=== PATIENT | female | born 1955 | race Caucasian/White ===

== ENCOUNTER → 2017-10-04 | Outpatient (CLI) | payer BC ==
[2017-08-30 12:31] VITALS: BMI 27.2
[~2017-10-04] MED LIST: AMLO-96 PO; ASPI-1471 PO; CALC-640 PO; CARI-1 PO; CARI-327; CHOL10005 PO; CLOB30CR3 TP; DIVA500T98 PO; ESTR0.4513 PO; EZET1TAB81; FENO145T PO; FLU60SYR30 IM ONLY; FLUT16SP19 NS; FURO-45 PO; HYDR-393; LABE100T28 PO; LEV112 PO; LEVO-3 PO; LEVO200T44; LEVO200T44 PO; LEVO25TA61 PO; LID5T; LOSA-57; LOSA50TA72 PO; MULT-1379 PO; NABU-95; PANT40TA65 PO; PARO-46 PO; PARO40TA88; PARO40TA88 PO; POTA20TA94 PO; QUET50TA21 PO; ROSU10TA13 PO; ROSU20TA23 PO; TRAM-420 PO; TRAM-627 PO
== END ==
LOC: LAB 15:18
PROVIDERS: ATTEND Surgery
DX: E87.6 Hypokalemia (principal)
CPT/HCPCS: 36415; 82374; 82435; 84132; 84295

== ENCOUNTER → 2017-10-04 | Outpatient (CLI) | payer BC ==
[2017-08-30 12:31] VITALS: BMI 27.2
[2017-10-04 16:04] LABS: PLATELET COUNT, AUTOMATED 222 K/uL (150-450)
== END ==
LOC: LAB 15:21
PROVIDERS: ATTEND Emergency Medicine
DX: D64.9 Anemia, unspecified (principal); E03.9 Hypothyroidism, unspecified
CPT/HCPCS: 36415; 84443; 85025

== ENCOUNTER 2018-01-12 00:20 | Day surgery (SDC) | payer BC ==
[2017-08-30 12:31] VITALS: Ht 170.2 cm; Wt 72.1 kg
[~2018-01-12] VITALS: Ht 170.2 cm; Wt 72.1 kg
[~2018-01-12 00:20] MED LIST changes: -FENO145T PO; +FENO145T36 PO; +KET10 PO; +LEVO50TA86 PO; +LEVO88TA45 PO; +LIDO700A19 TD; +POTA20TA85 PO
[2018-01-12] MEDS ORDERED: PROPOFOL EMUL(*) 10MG/ML 20 ML 20 ML ONE (07:26)
--- NOTE | 2018-01-12 07:27 | Post Operative Progress Note ---
Post Operative Progress Note Date: Jan 12, 2018 Time: 09:25 Surgeon: phillip Anesthesia: dr knight Pre-Op Diagnosis: diarrhea Post-Op Diagnosis: normal exam Procedure(s): colonoscopy with biopsy GABBY BAKER MD Jan 12, 2018 07:27
--- NOTE | 2018-01-12 07:28 | Short(Outpt) Discharge Summary ---
Discharge Summary Reason for Hosp/Final Diag: (1) Diarrhea Hospital Course & Plan: normal exam random biopsy obtained Departure Discharge to: Home Discharge Instructions Home Meds Active Scripts Levothyroxine Sodium (LEVOTHYROXINE SODIUM) 50 Mcg Tablet, 50 MCG PO QDAY, #45 TAB Prov:GOKUL PRICE MD 12/30/17 Quetiapine Fumarate (SEROQUEL) 50 Mg Tablet, 2 TAB PO QHS Y for INSOMNIA, #180 TAB 4 Refills Prov:GOKUL PRICE MD 10/17/17 Levothyroxine Sodium (LEVOTHYROXINE SODIUM) 100 Mcg Tablet, 100 MCG PO QDAY, # 90 TAB 3 Refills Prov:GOKUL PRICE MD 10/17/17 Pantoprazole Sodium (PANTOPRAZOLE SODIUM) 40 Mg Tablet.dr, 40 MG PO QDAY for 14 Days, #14 TAB Prov:GABBY BAKER MD 09/05/17 Fluticasone Prop 50 Mcg Ns (FLONASE 50 MCG NS) 16 Gm [place].susp, 1 SPRAY NS DAILY, #1 BOT 11 Refills 1-2 sprays both nostrils daily Prov:GOKUL PRICE MD 08/22/17 Labetalol Hcl (LABETALOL HCL) 100 Mg Tablet, 1 TAB PO BID, #180 TAB 1 Refill Prov:GOKUL PRICE MD 08/22/17 Paroxetine Hcl (PAROXETINE HCL) 20 Mg Tablet, 1 TAB PO QDAY, #90 TAB 3 Refills Prov:GOKUL PRICE MD 08/16/17 Amlodipine Besylate (AMLODIPINE BESYLATE) 5 Mg Tablet, 1 TAB PO QDAY, #90 TAB 4 Refills Prov:GOKUL PRICE MD 04/08/17 Losartan Potassium (LOSARTAN POTASSIUM) 50 Mg Tablet, 1 TAB PO QDAY, #90 TAB 4 Refills Prov:GOKUL PRICE MD 04/08/17 Furosemide (FUROSEMIDE) 20 Mg Tablet, 1 TAB PO QDAY, #30 TAB Prov:GOKUL PRICE MD 01/24/17 Reported Medications Lidocaine (Lidocaine) 5 % Adh..patch, 1 ADH.PATCH TD HS 01/05/18 Potassium Chloride (KLOR-CON M20) 20 Meq Tab.er.prt, 20 MEQ PO QDAY 01/05/18 Ketorolac Tromethamine (KETOROLAC TROMETHAMINE) 10 Mg Tab, 50 MG PO HS, TAB 01/05/18 Multivits,Th W-Fe,Other Min (THERA-M) 1 Each Tablet, 1 EACH PO DAILY 01/11/17 Calcium Citrate/Vitamin D3 (CALCITRATE + VIT D CAPLET) 1 Each Tablet, 1 EACH PO DAILY 01/11/17 Aspirin (ASPIR 81) 81 Mg Tablet.dr, 81 MG PO QDAY, TAB 01/02/17 Cholecalciferol (Vitamin D3) (VITAMIN D3) 1,000 Unit Tablet, 5000 UNIT PO QDAY, TAB 01/02/17 Estrogens, Conjugated (PREMARIN) 0.45 Mg Tablet, 1 TAB PO DAILY, #30 1 Refill 12/27/16 Discontinued Reported Medications Carisoprodol (SOMA) 350 Mg Tablet, 350 MG PO DAILY, #30 TAB 1 Refill Take 1 tablet daily at 6pm (1800) 01/11/17 Discontinued Scripts Potassium Chloride (POTASSIUM CHLORIDE) 20 Meq Tab.er.prt, 20 MEQ PO BIDBS for 10 Days, #20 TAB Prov:GABBY BAKER MD 09/05/17 Tramadol Hcl (TRAMADOL HCL) 50 Mg Tablet, 1 TAB PO TID for PAIN, #90 TAB 5 Refills Prov:GOKUL PRICE MD 05/12/17 Diet: Regular Activity: As Tolerated GABBY BAKER MD Jan 12, 2018 07:28
[2018-01-12] MEDS ORDERED: NORMOSOL R SOLN(*) 1000 ML BAG 1,000 ML IV PRN (08:30)
[2018-01-12] MEDS ORDERED: LIDOCAINE/SOD BICARB 8.4% SYR ID ONE (08:30)
[2018-01-12 08:33] VITALS: BP 127/80
[2018-01-12 09:26] VITALS: BP 104/67
[2018-01-12 10:13] VITALS: BP 126/70
[2018-01-12 10:15] VITALS: BP 131/62
--- NOTE | 2018-01-12 17:42 | OPERATIVE REPORT 1 ---
EVENT DATE: January 12, 2018 SURGEON: Zack Durand MD ANESTHESIOLOGIST: Alverto Meyer MD ANESTHESIA: Sedation. PREOPERATIVE DIAGNOSIS Persistent diarrhea. POSTOPERATIVE DIAGNOSIS Normal-appearing colonic examination. PROCEDURE PERFORMED Colonoscopy with random biopsies. DESCRIPTION OF PROCEDURE Patient was placed in the left lateral decubitus position and given intravenous sedation. Rectal exam was unremarkable. Flexible colonoscope was inserted and advanced to the cecum. She had an excellent bowel prep. The ileocecal valve, base of the cecum, and appendiceal orifice were identified. No abnormalities were noted in the cecum. Right colon appeared to be normal. Random biopsies were taken of the right colon. Transverse colon was normal. Descending and sigmoid colon were normal. Random biopsies were taken of the left colon. Rectal ampulla appeared to be normal. Biopsies were taken of the rectum. Scope was retroflexed. There were no abnormalities. Patient will require another colonoscopy in [address] [facility]ITAL[facility]
== END 2018-01-12 10:30 | disposition home or self-care (01) ==
LOC: OR 00:20
PROVIDERS: ATTEND Surgery
DX: R19.7 Diarrhea, unspecified (principal)
CPT/HCPCS: 00811; 45380; 88305; J2704

== ENCOUNTER → 2018-12-04 | Outpatient (CLI) | payer MEDICARE ==
[2017-08-30 12:31] VITALS: BMI 27.2
[~2018-12-04] MED LIST changes: +AMLO-125 PO; -AMLO-96 PO; +CHOL4PAC15 PO; +CIPR-344 PO; +LABE100T2 PO; -LABE100T28 PO; +LEVO175T42 PO; -LOSA50TA72 PO; +LOSA50TA80 PO; +NABU-1 PO; -ROSU10TA13 PO; +ROSU10TA5 PO; -ROSU20TA23 PO; +ROSU20TA24 PO
[2018-12-04 15:23] LABS: PLATELET COUNT, AUTOMATED 224 K/uL (150-450)
== END ==
LOC: LAB 14:39
PROVIDERS: ATTEND Emergency Medicine
DX: N39.0 Urinary tract infection, site not specified (principal); E03.9 Hypothyroidism, unspecified
CPT/HCPCS: 36415; 82040; 82247; 82310; 82374; 82435; 82565; 82947; 84075; 84132; 84155; 84295; 84443; 84450; 84460; 84520; 85025

== ENCOUNTER 2019-04-17 18:19 | Emergency (ER) | payer MEDICARE, OTHER ==
[2017-08-30 12:31] VITALS: Wt 83.9 kg
--- NOTE | 2019-04-17 18:28 | ER Report ---
History and Physical Time Seen By MD: 18:20 HPI/ROS CHIEF COMPLAINT: Cough and fevers HISTORY OF PRESENT ILLNESS: This is a 63-year-old female who presents to the emergency room for cough and fevers. Patient states that she's had a cough for about 10 days, her sputum is changed colors. She states she's had fevers at home of 103. She is sweaty in the emergency department. She is pale. She denies chest pain or shortness of breath. She does not wear oxygen at home however her SPO2 on room air was 84%. She denies nausea or vomiting. She has diarrhea however she states this is been normal for the last couple of years since her gallbladder wa s removed. No rashes. REVIEW OF SYSTEMS: Constitutional: As above. Eyes: No discharge. ENT: No sore throat. Cardiovascular: No chest pain, no palpitations. Respiratory: As above. Gastrointestinal: No abdominal pain, no vomiting. Genitourinary: No hematuria. Musculoskeletal: No back pain. Skin: No rashes. Neurological: No headache. Allergies: Coded Allergies: amoxicillin (Verified Allergy, Mild, VOMITING, 04/17/19) clavulanic acid (Verified Allergy, Mild, VOMITING, 04/17/19) Home Meds Active Scripts Azithromycin 250 Mg Tab (AZITHROMYCIN 250 MG TAB) 250 Mg Tablet, 1 TAB PO QDAY, #4 TAB 1 tab a day until gone. Prov:DEANDRE HART COMMUNITY RELATIONS ASSISTANT-BC 04/17/19 Paroxetine Hcl (PAROXETINE HCL) 20 Mg Tablet, 1 TAB PO QDAY, #90 TAB 1 Refill Prov:GOUKL WERNER MD 03/28/19 Losartan Potassium (LOSARTAN POTASSIUM) 50 Mg Tablet, 1 TAB PO QDAY, #90 TAB 1 Refill Prov:GOKUL WERNER MD 01/17/19 Amlodipine Besylate (AMLODIPINE BESYLATE) 5 Mg Tablet, 1 TAB PO QDAY, #90 TAB 1 Refill Prov:GOKUL WERNER MD 12/29/18 Labetalol Hcl (LABETALOL HCL) 100 Mg Tablet, 1 TAB PO BID, #180 TAB 3 Refills Prov:GOKUL WERNER MD 04/19/18 Fluticasone Prop 50 Mcg Ns (FLONASE 50 MCG NS) 16 Gm [place].susp, 1 SPRAY NS DAILY, #1 BOT 11 Refills 1-2 sprays both nostrils daily Prov:GOKUL WERNER MD 08/22/17 Reported Medications Carisoprodol (SOMA) 350 Mg Tablet, 350 MG PO QID, TAB 04/17/19 Levothyroxine Sodium (SYNTHROID) 200 Mcg Tablet, 200 MCG PO QDAY 04/17/19 Tramadol Hcl (TRAMADOL HCL) 50 Mg Tablet, 2 TAB PO BID, TAB 01/02/19 Potassium Chloride (KLOR-CON M20) 20 Meq Tab.er.prt, 20 MEQ PO QDAY 01/05/18 Multivits,Th W-Fe,Other Min (THERA-M) 1 Each Tablet, 1 EACH PO DAILY 01/11/17 Calcium Citrate/Vitamin D3 (CALCITRATE + VIT D CAPLET) 1 Each Tablet, 1 EACH PO DAILY 01/11/17 Aspirin (ASPIR 81) 81 Mg Tablet.dr, 81 MG PO QDAY, TAB 01/02/17 Cholecalciferol (Vitamin D3) (VITAMIN D3) 1,000 Unit Tablet, 5000 UNIT PO QDAY, TAB 01/02/17 Estrogens, Conjugated (PREMARIN) 0.45 Mg Tablet, 1 TAB PO DAILY, #30 1 Refill 12/27/16 Discontinued Reported Medications Nabumetone (NABUMETONE) Unknown Strength Tablet, PO BID, #20 TAB 12/04/18 Discontinued Scripts Levothyroxine Sodium (LEVOTHYROXINE SODIUM) 175 Mcg Tablet, 175 MCG PO QDAY, #90 TAB 4 Refills Prov:GOKUL WERNER MD 12/19/18 Ciprofloxacin Hcl 500 Mg Tab (CIPRO 500 MG TAB) 500 Mg Tablet, 500 MG PO BID, #14 TAB Prov:GOKUL WERNER MD 12/04/18 Past Medical/Surgical History The patient has a past medical and surgical history of hypertension, hypercholesterolemia, GERD, Sha cystectomy, tract infections, menopause, 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 Reviewed Nurses Notes: Yes Hx Smoking: No Smoking Status: Never Smoker Exposure to Second Hand Smoke?: Yes (Parent - 40 years ago) Hx Substance Use Disorder: No Hx Alcohol Use: No Constitutional Vital Sign - Last 24 Hours 04/17/19 04/17/19 04/17/19 04/17/19 18:21 18:25 18:30 18:35 Temp 97.3 Pulse 74 Resp 18 B/P (MAP) 130/58 (82) 130/58 129/61 (83) Pulse Ox 85 O2 Delivery Room Air O2 Flow Rate 2.0 04/17/19 04/17/19 04/17/19 04/17/19 18:49 19:19 19:49 20:00 Pulse 73 117 73 ??? B/P (MAP) ???/??? (1665) Pulse Ox 94 81 94 04/17/19 04/17/19 04/17/19 04/17/19 20:30 21:00 21:35 21:40 Pulse 71 ??? 75 B/P (MAP) ???/??? (1665) Pulse Ox 95 84 96 O2 Delivery Room Air 04/17/19 04/17/19 21:43 21:45 Pulse 74 B/P (MAP) 150/66 (94) Pulse Ox 90 Physical Exam General Appearance: The patient is alert, has no immediate need for airway protection and no signs of toxicity. Eyes: Pupils equal and round no pallor or injection. ENT, Mouth: Mucous membranes are dry, geographic tongue. Respiratory: Slightly diminished and coarse lung sounds left lower lobe otherwise unremarkable. Cardiovascular: Regular rate and rhythm. Systolic murmur, no clicks or rubs. Gastrointestinal: Abdomen is soft and non tender, no masses, bowel sounds normal. Neurological: Alert and oriented 4. Moving all extremities. Following all commands. No focal neuro deficits. Skin: Warm and dry, no rashes. Musculoskeletal: Neck is supple non tender. Extremities are nontender, nonswollen and have full range of motion. DIFFERENTIAL DIAGNOSIS: After history and physical exam differential diagnosis was considered for adult fever including but not limited to viral syndromes including influenza, urinary tract infection, pneumonia and sepsis. Medical Decision Making Data Points Result Diagram: 04/17/19194004/17/191940 Laboratory Hematology Test 04/17/19 19:41 White Blood Count 7.1 k/uL (4.5-11.0) Red Blood Count 3.53 M/uL (4.17-5.56) L Hemoglobin 11.5 g/dL (12.0-16.0) L Hematocrit 34.1 % (34.0-47.0) Mean Corpuscular Volume 96.6 fL (80.0-96.0) H Mean Corpuscular Hemoglobin 32.7 pg (26.0-33.0) Mean Corpuscular Hemoglobin Concent 33.8 g/dL (32.0-36.0) Red Cell Distribution Width 16.7 % (11.5-14.5) H Platelet Count 184 K/uL (150-450) Mean Platelet Volume 7.8 fL (7.2-11.1) Neutrophils (%) (Auto) % (39.4-72.5) Lymphocytes (%) (Auto) % (17.6-49.6) Monocytes (%) (Auto) % (4.1-12.4) Eosinophils (%) (Auto) % (0.4-6.7) Basophils (%) (Auto) % (0.3-1.4) Nucleated RBC Relative Count (auto) /100WBC Neutrophils # (Auto) K/uL (2.0-7.4) Lymphocytes # (Auto) K/uL (1.3-3.6) Monocytes # (Auto) K/uL (0.3-1.0) Eosinophils # (Auto) K/uL (0.0-0.5) Basophils # (Auto) K/uL (0.0-0.1) Nucleated RBC Absolute Count (auto) K/uL Neutrophils % (Manual) 29 % (39.4-72.5) L Band Neutrophils % 1 % Lymphocytes % (Manual) 36 % (17.6-49.6) Atypical Lymphocytes % 25 % Monocytes % (Manual) 9 % (4.1-12.4) Eosinophils % (Manual) 0 % (0.4-6.7) L Basophils % (Manual) 0 % (0.3-1.4) L Chemistry Test 04/17/19 19:41 Sodium Level 133 mmol/L (137-145) Potassium Level 3.5 mmol/L (3.5-5.0) Chloride Level 100 mmol/L (98-107) Carbon Dioxide Level 23 mmol/L (22-31) Blood Urea Nitrogen 14 mg/dl (7-18) Creatinine 1.00 mg/dl (0.52-1.04) Glomerular Filtration Rate Calc 55.6 Random Glucose 112 mg/dl (75-110) Lactate 2.0 mmol/L (0.7-2.1) Calcium Level 7.8 mg/dl (8.4-10.2) Total Bilirubin 0.9 mg/dl (0.2-1.3) Aspartate Amino Transf (AST/SGOT) 73 U/L (0-35) Alanine Aminotransferase (ALT/SGPT) 69 U/L (0-56) Alkaline Phosphatase 336 U/L (0-126) Total Protein 5.2 g/dl (6.3-8.2) Albumin 3.0 g/dl (3.5-5.0) Serology Test 04/17/19 20:23 Influenza Virus Type A (PCR) Negative (NEGATIVE) Influenza Virus Type B (PCR) Negative (NEGATIVE) EKG/Imaging Imaging PATIENT NAME: Amrita Callaway : 1955 MR: [id number] V: [id number] EXAM DATE: ORDERING PHYSICIAN: DEANDRE HART TECHNOLOGIST: Location: [facility] Patient: Amrita Callaway : 1955 Visit/Account:[id number] Date of Sevice: 04/17/2019 2 VIEWS CHEST INDICATION: Cough. COMPARISON: 09/02/2017. FINDINGS: Cardiomediastinal silhouette and pulmonary vessels within normal limits. There is no focal infiltrate or lobar consolidation. There is no pneumothorax or pleural effusion. Scarring seen left lower lobe. No discrete nodule. Upper abdomen is unremarkable. No acute bony abnormality. IMPRESSION: 1. No acute cardiopulmonary process. Report Dictated By: Roddy Mondragon at 04/17/2019 8:18 PM Report E-Signed By: Roddy Mondragon at 04/17/2019 8:19 PM WSN:[id number] ED Course/Re-evaluation Clinical Indication for ER IV: Hydration, IV Access ED Course The patient was admitted to room. A history and physical were obtained. Differential diagnoses were considered. An IV was started. A CBC, CMP were obtained. A lactate was normal. A 1 L normal saline bolus was given. CBC showing MCV 96.9, chemistry showing sodium 133, AST 73, ALT 69, alk phosphatase 336, when compared to the patient's historical data, these are within the patient's normal range however I did tell the patient I would like her to follow up with her primary care provider soon as he can for reevaluation of her laboratory studies as well as her symptoms. Although the patient was not febrile here, she is currently taking antipyretics. No acute findings on Chest Xray, however with her fevers at home, and my physical exam, she was sweating, warm to touch, and coarse lung sounds on the left lower base and dullness when percussed, I am treating her for pneumonia. She was started on Azithromycin in the ED, Rx to her pharmacy. She was also noted to be hypoxic at 84%, she will be started on oxygen, she did not want to wait for home O2 tonight, was given an inhaler and will contact [facility] in the am. She was agreeable with this plan of care and discharged home. 04/17/2019 9:30:39 pm the patient would prefer to go home now and have [facility] follow-up tomorrow morning for oxygen, I did explain to her that her oxygen was low. Decision to Disposition Date: Apr 17, 2019 Decision to Disposition Time: 21:22 Depart Departure Latest Vital Signs Vital Signs Date Time Temp Pulse Resp B/P (MAP) Pulse Ox O2 Delivery O2 Flow Rate FiO2 04/17/19 21:45 74 90 04/17/19 21:43 150/66 (94) 04/17/19 21:35 Room Air 04/17/19 18:35 2.0 04/17/19 18:25 97.3 18 Impression: Primary Impression: Hypoxia Additional Impression: Pneumonia Condition: Improved Disposition: HOME OR SELF-CARE Referrals: GOKUL WERNER MD (PCP) JHOAN AGARWAL JOHN A MD New Scripts Azithromycin 250 Mg Tab (AZITHROMYCIN 250 MG TAB) 250 Mg Tablet 1 TAB PO QDAY, #4 TAB 1 tab a day until gone. Prov: DEANDRE HART COMMUNITY RELATIONS ASSISTANT-BC 04/17/19 Departure Forms: ER Transition Record, Home Oxygen, Nebulizer RX, Home Oxygen Company Chosen by Patient: [facility] Durable Medical Equipment-Oxygen: Oxygen Concentrator, Portable Oxygen Gas Reason for Use/Diagnosis: Hypoxia, pneumonia Start Date of the Order: Apr 17, 2019 Dosage or Concentration (if applicable) - LPM: 2 Route of Administration (if applicable): Nasal Cannula Frequency of Use: Continuous Duration Home O2 Required: 30 Duration Units: Days Room Air Oxygen Saturation: 84 ER Prescribing Physician's Name: Deandre Hart NPI Numbers for Local ER MDs: Juancho [id number] Medications Reconciliation, Patient Portal Information Patient Instructions: Acute Cough (ED) Additional Instructions: Although your white count was normal, your exam was more concerning for pneumonia. You have also had fevers, I will go ahead and treat you with antibiotics. Please follow-up with Dr. Werner's office for reevaluation and repeat laboratory studies. Be sure to drink plenty of water. Get plenty of rest. You can take ibuprofen for pain. I would avoid Tylenol as sure liver enzymes were elevated. Return to ER for any concerns or worsening symptoms. Problem Qualifiers Additional Impression: Pneumonia Pneumonia type: due to unspecified organism Laterality: unspecified laterality Lung location: unspecified part of lung Qualified Codes: J18.9 - Pneumonia, unspecified organism DEANRDE HART COMMUNITY RELATIONS ASSISTANT-BC Apr 17, 2019 18:28
[2019-04-17] MEDS ORDERED: CARI-1 PO (18:34)
[2019-04-17] MEDS ORDERED: LEVO200T44 PO (18:34)
[2019-04-17] MEDS ORDERED: NS(*) 0.9% 1000 ML BAG 1,000 ML IV ONE (18:55)
[2019-04-17 19:51] LABS: PLATELET COUNT, AUTOMATED 184 K/uL (150-450)
--- NOTE | 2019-04-17 20:26 | RADIOLOGY IMAGING REPORT ---
FACILITY: [facility] PATIENT NAME: Amrita Callaway : 1955 MR: [id number] V: [id number] EXAM DATE: ORDERING PHYSICIAN: MASTER HART TECHNOLOGIST: Location: [facility] Patient: Amrita Callaway : 1955 Visit/Account:[id number] Date of Sevice: 04/17/2019 2 VIEWS CHEST INDICATION: Cough. COMPARISON: 09/02/2017. FINDINGS: Cardiomediastinal silhouette and pulmonary vessels within normal limits. There is no focal infiltrate or lobar consolidation. There is no pneumothorax or pleural effusion. Scarring seen left lower lobe. No discrete nodule. Upper abdomen is unremarkable. No acute bony abnormality. IMPRESSION: 1. No acute cardiopulmonary process. Report Dictated By: Roddy Mondragon at 04/17/2019 8:18 PM Report E-Signed By: Roddy Mondragon at 04/17/2019 8:19 PM WSN:[id number]
[2019-04-17] MEDS ORDERED: AZITHROMYCIN 250 MG TAB PO ONE (21:30)
[2019-04-17] MEDS ORDERED: AZIT-18 PO (21:30)
[2019-04-17] MEDS ORDERED: ALBUTEROL 8 GM INHALER INH ONE ×2 (21:42→21:45)
[2019-04-17 21:43] VITALS: BP 150/66
== END 2019-04-17 21:55 | disposition home or self-care (01) ==
LOC: ER 18:44
DX: J18.8 Other pneumonia, unspecified organism (principal); R09.02 Hypoxemia; E03.9 Hypothyroidism, unspecified; F32.9 Major depressive disorder, single episode, unspecified; F41.9 Anxiety disorder, unspecified; I10 Essential (primary) hypertension; E78.00 Pure hypercholesterolemia, unspecified; K21.9 Gastro-esophageal reflux disease without esophagitis; Z79.82 Long term (current) use of aspirin; Z79.899 Other long term (current) drug therapy; Z98.890 Other specified postprocedural states; Z98.1 Arthrodesis status
CPT/HCPCS: 71046; 83605; 85025; 87502; 94640; 99283; J7030; Q0144; 82040; 82247; 82310; 82374; 82435; 82565; 82947; 84075; 84132; 84155; 84295; 84450; 84460; 84520

== ENCOUNTER 2019-04-20 15:23 | Inpatient (IN) | payer MEDICARE, OTHER ==
[2017-08-30 12:31] VITALS: Wt 83.9 kg
[~2019-04-20 15:23] MED LIST changes: +AZIT-18 PO
--- NOTE | 2019-04-20 15:30 | ER Report ---
History and Physical Time Seen By MD: 15:26 HPI/ROS CHIEF COMPLAINT: Weakness and dyspnea HISTORY OF PRESENT ILLNESS: This is a 63-year-old female who returns to the emergency department for increased weakness and dyspnea. The patient was seen and evaluated in the emergency department 3 days ago, diagnosed with pneumonia, started on azithromycin, patient states she's been taking the medications, she's also been taking prednisone, is on home oxygen. She states that she is continuing to have increased shortness of breath and weakness. She denies fevers at home however she has felt warm. She is tearful in the room. She continues to have a semi-productive cough. No rashes, no headaches, denies sore throat. REVIEW OF SYSTEMS: Constitutional: As above. Eyes: No discharge. ENT: No sore throat. Cardiovascular: No chest pain, no palpitations. Respiratory: As above. Gastrointestinal: No abdominal pain, no vomiting. Genitourinary: No hematuria. Musculoskeletal: No back pain. Skin: No rashes. Neurological: No headache. Allergies: Coded Allergies: amoxicillin (Verified Allergy, Mild, VOMITING, 04/17/19) clavulanic acid (Verified Allergy, Mild, VOMITING, 04/17/19) Home Meds Active Scripts Azithromycin 250 Mg Tab (AZITHROMYCIN 250 MG TAB) 250 Mg Tablet, 1 TAB PO QDAY, #4 TAB 1 tab a day until gone. Prov:MASTER HART PLUMBING TECHNICIAN-BC 04/17/19 Paroxetine Hcl (PAROXETINE HCL) 20 Mg Tablet, 1 TAB PO QDAY, #90 TAB 1 Refill Prov:GOKUL PRICE MD 03/28/19 Losartan Potassium (LOSARTAN POTASSIUM) 50 Mg Tablet, 1 TAB PO QDAY, #90 TAB 1 Refill Prov:GOKUL PRICE MD 01/17/19 Amlodipine Besylate (AMLODIPINE BESYLATE) 5 Mg Tablet, 1 TAB PO QDAY, #90 TAB 1 Refill Prov:GOKUL PRICE MD 12/29/18 Labetalol Hcl (LABETALOL HCL) 100 Mg Tablet, 1 TAB PO BID, #180 TAB 3 Refills Prov:GOKUL PRICE MD 04/19/18 Fluticasone Prop 50 Mcg Ns (FLONASE 50 MCG NS) 16 Gm [place].susp, 1 SPRAY NS DAILY, #1 BOT 11 Refills 1-2 sprays both nostrils daily Prov:GOKUL PRICE MD 08/22/17 Reported Medications Quetiapine Fumarate (QUETIAPINE FUMARATE) 50 Mg Tablet, 50 MG PO HS 04/20/19 Estrogens Conjugated (PREMARIN) 0.3 Mg Tab, 1 TAB PO DAILY 04/20/19 Cyclobenzaprine Hcl (CYCLOBENZAPRINE HCL) 10 Mg Tablet, 1 TAB PO TID PRN for SPASMS 04/20/19 Levothyroxine Sodium (SYNTHROID) 175 Mcg Tablet, 1 TAB PO DAILY 04/20/19 Tramadol Hcl (TRAMADOL HCL) 50 Mg Tablet, 2 TAB PO BID, TAB 01/02/19 Potassium Chloride (KLOR-CON M20) 20 Meq Tab.er.prt, 20 MEQ PO QDAY 01/05/18 Multivits, W-Fe,Other Min (THERA-M) 1 Each Tablet, 1 EACH PO DAILY 01/11/17 Calcium Citrate/Vitamin D3 (CALCITRATE + VIT D CAPLET) 1 Each Tablet, 1 EACH PO DAILY 01/11/17 Aspirin (ASPIR 81) 81 Mg Tablet.dr, 81 MG PO QDAY, TAB 01/02/17 Cholecalciferol (Vitamin D3) (VITAMIN D3) 1,000 Unit Tablet, 5000 UNIT PO QDAY, TAB 01/02/17 Estrogens, Conjugated (PREMARIN) 0.45 Mg Tablet, 1 TAB PO DAILY, #30 1 Refill 12/27/16 Discontinued Reported Medications Levothyroxine Sodium (LEVOTHYROXINE SODIUM) 100 Mcg Tablet, 100 MCG PO QDAY, TAB 04/20/19 Levothyroxine Sodium (LEVOTHYROXINE SODIUM) 75 Mcg Tablet, 75 MCG PO QDAY, TAB 04/20/19 Carisoprodol (SOMA) 350 Mg Tablet, 350 MG PO QID, TAB 04/17/19 Levothyroxine Sodium (SYNTHROID) 200 Mcg Tablet, 200 MCG PO QDAY 04/17/19 Nabumetone (NABUMETONE) Unknown Strength Tablet, PO BID, #20 TAB 12/04/18 Discontinued Scripts Levothyroxine Sodium (LEVOTHYROXINE SODIUM) 175 Mcg Tablet, 175 MCG PO QDAY, #90 TAB 4 Refills Prov:GOKUL PRICE MD 12/19/18 Ciprofloxacin Hcl 500 Mg Tab (CIPRO 500 MG TAB) 500 Mg Tablet, 500 MG PO BID, #14 TAB Prov:ALBERTGOKUL Rogel MD 12/04/18 Past Medical/Surgical History The patient has a past medical and surgical history of hypertension, hyperc holesterolemia, GERD, Cholecystectomy, tract infections, menopause, 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 Reviewed Nurses Notes: Yes Hx Smoking: No Smoking Status: Never Smoker Exposure to Second Hand Smoke?: Yes (Parent - 40 years ago) Hx Substance Use Disorder: No Hx Alcohol Use: No Constitutional Vital Sign - Last 24 Hours 04/20/19 04/20/19 04/20/19 04/20/19 15:27 15:27 15:30 16:00 Temp 98.2 Pulse 117 84 88 Resp 20 18 B/P (MAP) 145/74 151/73 (99) Pulse Ox 79 92 O2 Delivery Room Air O2 Flow Rate 2.0 04/20/19 04/20/19 04/20/19 04/20/19 16:00 16:00 16:07 16:30 Pulse 87 85 75 Resp 18 Pulse Ox 91 98 93 O2 Delivery Room Air 04/20/19 04/20/19 04/20/19 17:00 17:30 18:00 Pulse 73 75 72 B/P (MAP) 150/72 (98) 145/75 (98) 145/67 (93) Pulse Ox 95 94 88 Intake and Output 04/20/19 04/20/19 04/21/19 15:03 23:03 07:03 Intake Total 1000 ml Balance 1000 ml Physical Exam General Appearance: The patient is alert, has no immediate need for airway protection and no signs of toxicity. Eyes: Pupils equal and round no pallor or injection. ENT, Mouth: Mucous membranes are moist, geographic tongue. Respiratory: There are no retractions, slightly diminished to the left lower base, otherwise clear throughout. Cardiovascular: Regular rate and rhythm. No murmurs, clicks or rubs. Gastrointestinal: Abdomen is soft and non tender, no masses, bowel sounds normal. Neurological: Alert and oriented 4. Moving all extremities. Following all commands. No focal neuro deficits. Skin: Warm and dry, no rashes. Musculoskeletal: Neck is supple non tender. Extremities are nontender, nonswollen and have full range of motion. DIFFERENTIAL DIAGNOSIS: After history and physical exam differential diagnosis was considered for shortness of breath including but not limited to pulmonary infectious process, COPD, asthma, pulmonary embolus and congestive heart failure. Medical Decision Making Data Points Result Diagram: 04/21/19 0632 04/21/19 0632 Laboratory Hematology Test 04/20/19 15:59 Peripheral Blood Smear Yes Y/N Chemistry Test 04/20/19 15:59 Lactate 1.6 mmol/L (0.7-2.1) Troponin I < 0.012 ng/ml Coagulation Test 04/20/19 15:45 D-Dimer Quantitative (PE/DVT) 2.15 ug/ml (0-0.50) Urinalysis Test 04/20/19 16:52 Urine Color Yellow Urine Clarity Clear Urine pH 6.0 pH (4.8-9.5) Urine Specific [place] 1.014 Urine Protein Negative mg/dL (NEGATIVE) Urine Glucose (UA) Negative mg/dL (NEGATIVE) Urine Ketones Negative mg/dL (NEGATIVE) Urine Blood Negative (NEGATIVE) Urine Nitrite Negative (NEGATIVE) Urine Bilirubin Negative (NEGATIVE) Urine Urobilinogen Negative mg/dL (0.2-1.9) Urine Leukocyte Esterase Negative (NEGATIVE) Urine RBC <1 /HPF (0-2/HPF) Urine WBC 1 /HPF (0-5/HPF) Urine Squamous Epithelial Cells Many /LPF (</=FEW) Urine Bacteria Few /HPF (NONE-FEW) Urine Mucus None /HPF (NONE-FEW) Microbiology Microbiology Date/Time Source Procedure Growth Status 04/20/19 15:45 Blood Peripheral Draw Blood Culture - Preliminary NO GROWTH AFTER 1 DAY, REINCUBATED Resulted 04/20/19 15:30 Blood Peripheral Draw Blood Culture - Preliminary NO GROWTH AFTER 1 DAY, REINCUBATED Resulted EKG/Imaging EKG Interpretation 12 lead EKG: Time of EKG 1548. Rhythm: Normal sinus rhythm, ventricular rate 85 bpm. Stanton: normal QRS: normal ST segments: No ST depression or elevation identified, poor T-wave progres pari in the lateral leads. No significant changes from the 08/29/2017 EKG or the 04/17/2019 EKG. Imaging PATIENT NAME: Amrita Callaway : 1955 MR: [id number] V: [id number] EXAM DATE: ORDERING PHYSICIAN: MASTER HART TECHNOLOGIST: Location: [facility] Patient: Amrita Callaway : 1955 Visit/Account:[id number] Date of Sevice: 04/20/2019 EXAMINATION: CT CHEST PULMONARY ANGIOGRAM COMPARISON: None available HISTORY: cough, shortness of breath and elevated d-dimer PROCEDURE: Pulmonary arterial phase imaging of the chest with 75 mL intravenous Isovue 370. Reconstruction of the source data set includes multiplanar 2D in the sagittal and coronal planes, and 3D reconstructed coronal slab MIP series. One of the following dose optimization techniques was utilized in the performance of this exam: Automated exposure control; adjustment of the mA and/or kV according to the patient's size; or use of an iterative reconstruction technique. Specific details can be referenced in the facility's radiology CT exam operational policy. FINDINGS: Pulmonary vasculature: There is good contrast opacification of the pulmonary arterial system. No pulmonary embolism. Main pulmonary artery size is normal. Cardiac and mediastinum: Cardiac chamber size is normal. No pericardial effusion. No thoracic aortic aneurysm. Mild thoracic aortic atherosclerosis. Lymph nodes: Numerous mildly enlarged mediastinal and hilar lymph nodes. A textile machinery sales representative aortopulmonary window lymph node measures 1.6 x 1.0 cm (series 4 image 43). Lungs and pleura: Bilateral lower lobe volume loss versus scarring. No consolidation or nodule is otherwise identified. No pneumothorax, edema, or effusion. Airways: Negative. Visualized upper abdomen: Incompletely visualized hepatosplenomegaly. Osseous structures: Lower cervical spine moderate degenerative change with mild degenerative change elsewhere in the spine. No acute findings. IMPRESSION: 1. No pulmonary embolism or evidence of acute cardiopulmonary disease. 2. Nonspecific mild mediastinal and hilar lymph node enlargement. This could be reactive although correlation with any history of malignancy is recommended. Alternatively, sarcoid is a consideration. If there is a clinical concern for malignancy, comparison to a prior study would be of benefit to evaluate for interval change. Alternatively, consider CT follow-up as clinically indicated. 3. Incompletely visualized hepatosplenomegaly. Results were discussed with MASTER HART at 04/20/2019 5:26 PM. Report Dictated By: Hernandez Salcido MD at 04/20/2019 5:05 PM Report E-Signed By: Hernandez Salcido MD at 04/20/2019 5:27 PM WSN:[id number] ED Course/Re-evaluation Clinical Indication for ER IV: Hydration, IV Access ED Course The patient was admitted to room. A history and physical were obtained. Differential diagnoses were considered. IV was started. A CBC, CMP and UA were collected. Negative troponin. D-dimer was elevated, CTA of the chest was negative for pulmonary embolus, however it is showing Nonspecific mild mediastinal and hilar lymph node enlargement. This could be reactive although correlation with any history of malignancy is recommended. Alternatively, sarcoid is a consideration. Did review this with the patient. With the report as well as the recurrent fevers, lack of improvement from 3 days prior, worsening hypoxia despite home oxygen, as well as her intermittent fluctuation in alk dylan sphatase and liver enzymes, I did recommend admission for further workup, the patient was agreeable, I did speak with Dr. Syed Watts, the hospitalist strategy consultant, she's accepted the patient hospitalist services. Patient was also given 1 DuoNeb with minimal improvement. 04/20/2019 4:23:03 pm the patient's d-dimer was elevated, I did discuss this with the patient, proceed with a CTA. 04/20/2019 6:04:00 pm I did speak with Dr. Syed Watts, hospitalist on-call, she's accepted the patient and the hospitalist services for hypoxia and cough, may begin the process for a sarcoidosis workup. Decision to Disposition Date: Apr 20, 2019 Decision to Disposition Time: 17:56 Depart Departure Latest Vital Signs Vital Signs Date Time Temp Pulse Resp B/P (MAP) Pulse Ox O2 Delivery O2 Flow Rate FiO2 04/20/19 18:00 72 145/67 (93) 88 04/20/19 16:07 18 04/20/19 16:00 Room Air 04/20/19 15:27 98.2 04/20/19 15:27 2.0 Impression: Primary Impression: Hypoxia Additional Impression: Cough with fever Condition: Improved Disposition: Admitted from ER Referrals: GOKUL PRICE MD (PCP) Problem Qualifiers MASTER HART PLUMBING TECHNICIAN-BC Apr 20, 2019 15:30
[2019-04-20] MEDS ORDERED: NS(*) 0.9% 1000 ML BAG 1,000 ML IV ONE (15:44)
[2019-04-20] MEDS ORDERED: ALBUTEROL/IPRATROPIUM 3 ML NEB NEB ONE (15:45)
[2019-04-20] MEDS ORDERED: ONDANSETRON 4 MG/2 ML VIAL ONE (16:07)
[2019-04-20 16:09] LABS: PLATELET COUNT, AUTOMATED 127 K/uL (150-450)
[2019-04-20] MEDS ORDERED: ONDANSETRON 4 MG/2 ML VIAL IVP ONE (16:10)
--- NOTE | 2019-04-20 16:20 | EKG ---
FACILITY: [facility] PATIENT NAME: TANNA CANO : [id number] MR: [id number] V: [id number] EXAM DATE: ORDERING PHYSICIAN: MASTER HART TECHNOLOGIST: Test Reason : dysnea Blood Pressure : / mmHG Vent. Rate : 085 BPM Atrial Rate : 085 BPM P-R Int : 142 ms QRS Dur : 074 ms QT Int : 382 ms P-R-T Axes : 020 -22 054 degrees QTc Int : 454 ms Normal sinus rhythm Isolated Q III of questionable significance Compared to previous ECG, no significant change. Confirmed by ABIEL KIRK ([id number]) on 04/20/2019 8:08:51 PM Referred By: Confirmed By:ABIEL KIRK
[2019-04-20] MEDS ORDERED: IOPAMIDOL 76% 100 ML INFUS BTL 100 ML ONE (16:42)
[2019-04-20] MEDS ORDERED: NS(*) 0.9% 50 ML BAG 50 ML ONE (16:42)
--- NOTE | 2019-04-20 17:34 | RADIOLOGY IMAGING REPORT ---
FACILITY: [facility] [place] PATIENT NAME: Amrita Callaway : 1955 MR: [id number] V: [id number] EXAM DATE: ORDERING PHYSICIAN: MASTER HART TECHNOLOGIST: Location: [facility] [place] Patient: Amrita Callaway : 1955 Visit/Account:[id number] Date of Sevice: 04/20/2019 EXAMINATION: CT CHEST PULMONARY ANGIOGRAM COMPARISON: None available HISTORY: cough, shortness of breath and elevated d-dimer PROCEDURE: Pulmonary arterial phase imaging of the chest with 75 mL intravenous Isovue 370. Reconstru ction of the source data set includes multiplanar 2D in the sagittal and coronal planes, and 3D recon structed coronal slab MIP series. One of the following dose optimization techniques was utilized in the performance of this exam: Autom ated exposure control; adjustment of the mA and/or kV according to the patient's size; or use of an i terative reconstruction technique. Specific details can be referenced in the facility's radiology C T exam operational policy. FINDINGS: Pulmonary vasculature: There is good contrast opacification of the pulmonary arterial system. No pul monary embolism. Main pulmonary artery size is normal. Cardiac and mediastinum: Cardiac chamber size is normal. No pericardial effusion. No thoracic aortic aneurysm. Mild thoracic aortic atherosclerosis. Lymph nodes: Numerous mildly enlarged mediastinal and hilar lymph nodes. A brewery representative aortopulmon [place] window lymph node measures 1.6 x 1.0 cm (series 4 image 43). Lungs and pleura: Bilateral lower lobe volume loss versus scarring. No consolidation or nodule is oth erwise identified. No pneumothorax, edema, or effusion. Airways: Negative. Visualized upper abdomen: Incompletely visualized hepatosplenomegaly. Osseous structures: Lower cervical spine moderate degenerative change with mild degenerative change e lsewhere in the spine. No acute findings. IMPRESSION: 1. No pulmonary embolism or evidence of acute cardiopulmonary disease. 2. Nonspecific mild mediastinal and hilar lymph node enlargement. This could be reactive although cor relation with any history of malignancy is recommended. Alternatively, sarcoid is a consideration. If there is a clinical concern for malignancy, comparison to a prior study would be of benefit to evalu ate for interval change. Alternatively, consider CT follow-up as clinically indicated. 3. Incompletely visualized hepatosplenomegaly. Results were discussed with MASTER HART at 04/20/2019 5:26 PM. Report Dictated By: Hernandez Salcido MD at 04/20/2019 5:05 PM Report E-Signed By: Hernandez Salcido MD at 04/20/2019 5:27 PM WSN:[id number]
[2019-04-20] MEDS ORDERED: FLUSH 10 ML SYR IVP PRN (19:30)
[2019-04-20] MEDS ORDERED: LEVO-3 PO (19:35)
[2019-04-20] MEDS ORDERED: LEVO75TA73 PO (19:35)
[2019-04-20 19:37] VITALS: BP 168/85
[2019-04-20] MEDS ORDERED: LEVO175T38 PO (20:17)
--- NOTE | 2019-04-20 20:20 | History & Physical ---
History of Present Illness Chief Complaint Fever, chills, night sweats, cough History of Present Illness The patient is a 63 year old female who was in her usual state of health until 2 weeks ago when she began having soaking night sweats, fever and chills. The patient has had a chronic cough for about 4 years which has been nonproductive. She attributes this to allergies and her dog. Her cough has worsened over the past 2 weeks with the fever and chills and has become productive with some blood in the sputum. The patient has measured her temperature at home and the highest measurement has been 102 degrees F. The patient has been short of breath as well. She has not been exposed to anyone else who has been ill. She has a 3 mo. old grandson that she has been in contact with frequently, but he has been well. She has not traveled anywhere outside of the city, state, or country. She has been outside at times walking her grandson in a stroller but for the most part has been inside her home. She has had her current dog for 4 years. She has no other pets. The patient also complains of a headache above her L eye that radiates at times into the hairline. 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 She denies any chest pain. She has not had dysuria or hematuria. She denies urinary frequency. She had had diarrhea since her gallbladder was removed in 2016. This has been persistent but stable and has been no worse with her current illness. She denies blood in her stool. She denies any skin lesions. She has had redness of her eyes which feel irritated and burn. There has been no discharge. She has eye symptoms at time with her allergies, but they seem to have worsened with her current illness. The patient has 2 brothers with sarcoidosis. She sees Dr. Werner in [place] and also Dr. Rosario in [place]. The patient was seen in the ER on April 17 with these complaints. She was hydrated and discharged on azithromycin and an albuterol inhaler. Oxygen was also prescribed at that time at 2L per NC. History Problems: (1) Hx of cholecystectomy (2) Essential hypertension Status: Chronic (3) Hyperlipidemia Status: Chronic (4) Hypothyroidism Status: Chronic (5) Chronic back pain Status: Chronic (6) Normocytic normochromic anemia Status: Chronic (7) History of hysterectomy Status: Acute (8) S/P lumbar fusion Status: Acute (9) Bipolar disorder Home Meds Active Scripts Azithromycin 250 Mg Tab (AZITHROMYCIN 250 MG TAB) 250 Mg Tablet, 1 TAB PO QDAY, #4 TAB 1 tab a day until gone. Prov:MASTER HART HEAD OF ACQUISITIONS-BC 04/17/19 Paroxetine Hcl (PAROXETINE HCL) 20 Mg Tablet, 1 TAB PO QDAY, #90 TAB 1 Refill Prov:GOKUL WERNER MD 03/28/19 Losartan Potassium (LOSARTAN POTASSIUM) 50 Mg Tablet, 1 TAB PO QDAY, #90 TAB 1 Refill Prov:GOKUL WERNER MD 01/17/19 Amlodipine Besylate (AMLODIPINE BESYLATE) 5 Mg Tablet, 1 TAB PO QDAY, #90 TAB 1 Refill Prov:GOKUL WERNER MD 12/29/18 Labetalol Hcl (LABETALOL HCL) 100 Mg Tablet, 1 TAB PO BID, #180 TAB 3 Refills Prov:GOKUL WERNER MD 04/19/18 Fluticasone Prop 50 Mcg Ns (FLONASE 50 MCG NS) 16 Gm [place].susp, 1 SPRAY NS DAILY, #1 BOT 11 Refills 1-2 sprays both nostrils daily Prov:GOKUL WERNER MD 08/22/17 Reported Medications Estrogens Conjugated (PREMARIN) 0.3 Mg Tab, 1 TAB PO DAILY 04/20/19 Cyclobenzaprine Hcl (CYCLOBENZAPRINE HCL) 10 Mg Tablet, 1 TAB PO TID PRN for SPASMS 04/20/19 Levothyroxine Sodium (SYNTHROID) 175 Mcg Tablet, 1 TAB PO DAILY 04/20/19 Tramadol Hcl (TRAMADOL HCL) 50 Mg Tablet, 2 TAB PO BID, TAB 01/02/19 Potassium Chloride (KLOR-CON M20) 20 Meq Tab.er.prt, 20 MEQ PO QDAY 01/05/18 Multivits, W-Fe,Other Min (THERA-M) 1 Each Tablet, 1 EACH PO DAILY 01/11/17 Calcium Citrate/Vitamin D3 (CALCITRATE + VIT D CAPLET) 1 Each Tablet, 1 EACH PO DAILY 01/11/17 Aspirin (ASPIR 81) 81 Mg Tablet.dr, 81 MG PO QDAY, TAB 01/02/17 Cholecalciferol (Vitamin D3) (VITAMIN D3) 1,000 Unit Tablet, 5000 UNIT PO QDAY, TAB 01/02/17 Estrogens, Conjugated (PREMARIN) 0.45 Mg Tablet, 1 TAB PO DAILY, #30 1 Refill 12/27/16 Discontinued Reported Medications Levothyroxine Sodium (LEVOTHYROXINE SODIUM) 100 Mcg Tablet, 100 MCG PO QDAY, TAB 04/20/19 Levothyroxine Sodium (LEVOTHYROXINE SODIUM) 75 Mcg Tablet, 75 MCG PO QDAY, TAB 04/20/19 Carisoprodol (SOMA) 350 Mg Tablet, 350 MG PO QID, TAB 04/17/19 Levothyroxine Sodium (SYNTHROID) 200 Mcg Tablet, 200 MCG PO QDAY 04/17/19 Nabumetone (NABUMETONE) Unknown Strength Tablet, PO BID, #20 TAB 12/04/18 Discontinued Scripts Levothyroxine Sodium (LEVOTHYROXINE SODIUM) 175 Mcg Tablet, 175 MCG PO QDAY, #90 TAB 4 Refills Prov:GOKUL WERNER MD 12/19/18 Ciprofloxacin Hcl 500 Mg Tab (CIPRO 500 MG TAB) 500 Mg Tablet, 500 MG PO BID, #14 TAB Prov:GOKUL WERNER MD 12/04/18 Allergies: Coded Allergies: amoxicillin (Verified Allergy, Mild, VOMITING, 04/17/19) clavulanic acid (Verified Allergy, Mild, VOMITING, 04/17/19) Patient History: FH: Alzheimers disease FATHER, , Age:87 MOTHER, , Age:85 Grandmother, FH: CAD (coronary artery disease) BROTHER OR SISTER BROTHER OR SISTER Grandfather, FH: HTN (hypertension) MOTHER, , Age:85 FH: depression MOTHER, , Age:85 FHx: sarcoidosis BROTHER OR SISTER BROTHER OR SISTER Hx Smoking: No Smoking Status: Never Smoker Exposure to Second Hand Smoke?: Yes (Parent - 40 years ago) Caffeine Intake: Coffee Caffeine/Cups Per Day: 1 Cup/WEEK Hx Alcohol Use: No Hx Substance Use Disorder: No Social Drug Use: Never History of IV Drug Use: No Review of Systems Constitutional: Fever, Chills, Night Sweats Neurological: Dizziness, Other (Head ache above L eye.) Eyes: Other (Redness, irritated burning bilateral.) Cardiovascular: No Chest Pain Respiratory: Shortness of Breath, Cough Gastrointestinal: Diarrhea; No Hematochezia, No Abdominal Pain Genitourinary: Other (Denies frequency.); No Dysuria, No Hematuria Musculoskeletal: Pain (Low back and neck, chronic.) Psychiatric: Other (Hx of bipolar disorder.) Exam Vital Signs Vital Signs Date Time Temp Pulse Resp B/P (MAP) Pulse Ox O2 Delivery O2 Flow Rate FiO2 04/20/19 19:37 97.3 20 168/85 (112) 93 Nasal Cannula 3.0 04/20/19 19:00 76 General Appearance: Alert, Awake, No Acute Distress, Afebrile Neuro: No Gross deficits Eyes: Other (Sclera injected. Conjunctiva pink except right at the lash line both conjunctiva are injected.) ENT: Moist Mucous Membranes, Oropharynx Clear Neck: Other (cervical LN not enlarged (ant and post)) Chest: Other (L supraclavicular LN palpable, nontender.) GI: Other (Abdomen slightly distended, BS+.) : No CVA Tenderness Lymph: Cervical Nodes Benign Musculoskeletal: Other (Well healed surgical scar over lumbar spine.) Extremities: Warm, Pulses (Full and equal. ), Perfused, Other (No edema.) Integumentary: Other (Few superficial abrasions scattered over both LE.) Psych: Alert & Oriented X3, Appropriate Mood & Affect Medical Decision Making Data Points Result Diagram: 04/20/19155804/20/191558 Item Value Date Time D-Dimer Quantitative (PE/DVT) 2.15 ug/ml H 04/20/19 1545 Lactate 1.6 mmol/L 04/20/19 1559 Calcium Level 7.6 mg/dl L 04/20/19 155 Total Bilirubin 0.8 mg/dl 04/20/19 1559 Aspartate Amino Transf (AST/SGOT) 72 U/L H 04/20/19 1559 Alanine Aminotransferase (ALT/SGPT) 64 U/L H 04/20/19 1559 Alkaline Phosphatase 228 U/L H 04/20/19 155 Total Protein 5.5 g/dl L 04/20/19 1559 Albumin 3.0 g/dl L 04/20/19 155 Troponin I < 0.012 ng/ml 04/20/19 155 Urine Color Yellow 04/20/19 1652 Urine Clarity Clear 04/20/19 1652 Urine pH 6.0 pH 04/20/19 1652 Urine Specific [facility] 1.014 04/20/19 1652 Urine Protein Negative mg/dL 04/20/19 1652 Urine Glucose (UA) Negative mg/dL 04/20/19 1652 Urine Ketones Negative mg/dL 04/20/19 1652 Urine Blood Negative 04/20/19 1652 Urine Nitrite Negative 04/20/19 1652 Urine Bilirubin Negative 04/20/19 1652 Urine Urobilinogen Negative mg/dL 04/20/19 1652 Urine Leukocyte Esterase Negative 04/20/19 1652 Urine RBC <1 /HPF 04/20/19 1652 Urine Squamous Epithelial Cells Many /LPF H 04/20/19 1652 Urine WBC 1 /HPF 04/20/19 1652 Urine Bacteria Few /HPF 04/20/19 1652 Urine Mucus None /HPF 04/20/19 1652 EKG / Imaging EKG Interpretation FACILITY: [facility] PATIENT NAME: AMRITA CALLAWAY : [id number] MR: [id number] V: [id number] EXAM DATE: ORDERING PHYSICIAN: MASTER M360LOHAS outdoors TECHNOLOGIST: Test Reason : dysnea Blood Pressure : / mmHG Vent. Rate : 085 BPM Atrial Rate : 085 BPM P-R Int : 142 ms QRS Dur : 074 ms QT Int : 382 ms P-R-T Axes : 020 -22 054 degrees QTc Int : 454 ms Normal sinus rhythm Inferior infarct , age undetermined Abnormal ECG When compared with ECG of 29-AUG-2017 17:54, Inferior infarct is now present Uncomfirmed Imaging FACILITY: [facility] PATIENT NAME: Amrita Callaway : 1955 MR: [id number] V: [id number] EXAM DATE: [id number] ORDERING PHYSICIAN: MASTER LDL TechnologyVIOLASnapflow TECHNOLOGIST: Location: [facility] Patient: Amrita Callaway : 1955 Visit/Account:[id number] Date of Sevice: 04/20/2019 EXAMINATION: CT CHEST PULMONARY ANGIOGRAM COMPARISON: None available HISTORY: cough, shortness of breath and elevated d-dimer PROCEDURE: Pulmonary arterial phase imaging of the chest with 75 mL intravenous Isovue 370. Reconstruction of the source data set includes multiplanar 2D in the sagittal and coronal planes, and 3D reconstructed coronal slab MIP series. One of the following dose optimization techniques was utilized in the performance of this exam: Automated exposure control; adjustment of the mA and/or kV according to the patient's size; or use of an iterative reconstruction technique. Specific details can be referenced in the facility's radiology CT exam operational policy. FINDINGS: Pulmonary vasculature: There is good contrast opacification of the pulmonary arterial system. No pulmonary embolism. Main pulmonary artery size is normal. Cardiac and mediastinum: Cardiac chamber size is normal. No pericardial effusion. No thoracic aortic aneurysm. Mild thoracic aortic atherosclerosis. Lymph nodes: Numerous mildly enlarged mediastinal and hilar lymph nodes. A r epresentative aortopulmonary window lymph node measures 1.6 x 1.0 cm (series 4 image 43). Lungs and pleura: Bilateral lower lobe volume loss versus scarring. No consolidation or nodule is otherwise identified. No pneumothorax, edema, or effusion. Airways: Negative. Visualized upper abdomen: Incompletely visualized hepatosplenomegaly. Osseous structures: Lower cervical spine moderate degenerative change with mild degenerative change elsewhere in the spine. No acute findings. IMPRESSION: 1. No pulmonary embolism or evidence of acute cardiopulmonary disease. 2. Nonspecific mild mediastinal and hilar lymph node enlargement. This could be reactive although correlation with any history of malignancy is recommended. Alternatively, sarcoid is a consideration. If there is a clinical concern for malignancy, comparison to a prior study would be of benefit to evaluate for interval change. Alternatively, consider CT follow-up as clinically indicated. 3. Incompletely visualized hepatosplenomegaly. Results were discussed with MASTER HART at 04/20/2019 5:26 PM. Report Dictated By: Hernandez Salcido MD at 04/20/2019 5:05 PM Report E-Signed By: Hernandez Salcido MD at 04/20/2019 5:27 PM WSN:[id number] Pre-Admit Course Medical Record Review: Yes Assessment and Plan Problems: (1) Fever Status: Acute Assessment & Plan: CTA of chest today with adenopathy. CBC from her ER visit 04/17 show 25% atypical lymphocytes. CBC today shows lymphocyte predominance but no atypical lymphocytes. WBC is overall normal. Will order HIV, West Nile, Monotest and place PPD. Will order sputum X [address] in isolation. Blood culture ordered as well. ESR and CRP are pending. (2) Hypoxia Status: Acute Assessment & Plan: Her saturations in the ER were low 70s. She is not on O2 at home prior to this acute illness. Will continue O2 to keep sats 90% or greater. She may need a bronchoscopy as sarcoidosis is on the differential diagnosis due to her hilar adenopathy. (3) Lymphadenopathy Status: Acute Assessment & Plan: Further work up as above. Consider acute viral/bacterial infection, TB, sarcoidosis, lymphoma,HIV, mononucleosis to name a few. Additional testing as needed. (4) Hepatosplenomegaly Status: Acute Assessment & Plan: CT of the abdomen and pelvis from 2017 did not show hepatosplenomegaly so this is a new finding. Dedicated CT of abdomen and pelvis ordered for am. (5) Thrombocytopenia Status: Acute Assessment & Plan: Etiology unclear. Work up as above. (6) Hypokalemia Status: Acute Assessment & Plan: Mild. Will order oral replacement. (7) Normocytic normochromic anemia Status: Chronic Assessment & Plan: The patient has a history of anemia. Her more recent CBCs have shown normal HCT but her counts have dropped with her current illness. (8) Hypothyroidism Status: Chronic Assessment & Plan: Continue levothyroxine 75mcg daily. (9) Hyperlipidemia Status: Chronic Assessment & Plan: Continue cholestyramine. (10) Essential hypertension Status: Chronic Assessment & Plan: Continue losartan, amlodipine and labetalol. (11) Diarrhea Status: Chronic Assessment & Plan: The patient is on cholestyramine. This has been present since her cholecystectomy in 2017 and is stable. Time Spent on Plan of Care: < 30 min Copies to: GOKUL WERNER MD ; Venous Thromboembolism Antithrombotics Is Pt On Any Antithrombotics?: Yes Exam Sepsis Risk: Possible Sepsis Risk PATRICK MODI MD Apr 20, 2019 20:20
[2019-04-20] MEDS ORDERED: EST3 PO (20:22)
[2019-04-20] MEDS ORDERED: CYCL10TA29 PO (20:22)
[2019-04-20] MEDS ORDERED: CYCLOBENZAPRINE HCL 10 MG TAB PO PRN (20:25)
[2019-04-20] MEDS ORDERED: QUET50TA PO (21:06)
[2019-04-20] MEDS: ACETAMINOPHEN 325 MG TAB PO PRN (21:15)
[2019-04-20] MEDS: LABETALOL HCL 100 MG TAB PO SCH (21:15)
[2019-04-20] MEDS: NS(*) 0.9% 1000 ML BAG 1,000 ML IV PRN (21:15)
[2019-04-20] MEDS: QUEtiapine FUM 25 MG TAB PO SCH (22:19)
[2019-04-20 23:56] VITALS: BP 134/58
[2019-04-21] MEDS: LEVOTHYROXINE SOD 0.175 MG TAB PO SCH (06:12)
[2019-04-21 06:44] LABS: PLATELET COUNT, AUTOMATED 140 K/uL (150-450)
[2019-04-21] MEDS: NS(*) 0.9% 1000 ML BAG 1,000 ML IV PRN (07:26)
[2019-04-21] MEDS: traMADol 50 MG TAB PO PRN (07:31)
--- NOTE | 2019-04-21 08:59 | Hospitalist Progress Note ---
Subjective Progress Notes Subjective This patient was admitted for fever. She had no acute events overnight. Patient Complains of: Cardiovascular: No: Chest Pain Respiratory: No: Shortness of Breath Physical Exam Vital Signs Date Time Temp Pulse Resp B/P (MAP) Pulse Ox O2 Delivery O2 Flow Rate FiO2 04/20/19 23:56 98.7 72 20 134/58 (83) 93 Nasal Cannula 3.0 Intake and Output 04/21/19 07:03 Intake Total 1500 ml Balance 1500 ml Intake Oral 500 ml IV Total 1000 ml # Voids 2 Cardiovascular: Regular Rate and Rhythm Respiratory: Clear to Auscultation Result Diagram: 04/21/19 0632 04/21/19 0632 Assessment and Plan Problems: (1) Fever Status: Acute Assessment & Plan: She did present with fever and night sweats over the last [address] scan showed findings consistent with adenopathy. He CBC has shown lymphocytosis. She is on isolation. Testing for tuberculosis and west Nile are pending. (2) Hypoxia Status: Acute Assessment & Plan: Her saturations in the ER were low 70s. She is not on O2 at home prior to this acute illness. (3) Lymphadenopathy Status: Acute Assessment & Plan: Further work up as above. Consider acute viral/bacterial infection, TB, sarcoidosis, lymphoma,HIV, mononucleosis to name a few. Additional testing as needed. (4) Hepatosplenomegaly Status: Acute Assessment & Plan: CT of the abdomen and pelvis from 2017 did not show hepatosplenomegaly so this is a new finding. Dedicated CT of abdomen and pelvis ordered for am. (5) Thrombocytopenia Status: Acute Assessment & Plan: Etiology unclear. Work up as above. (6) Hypokalemia Status: Acute Assessment & Plan: Mild. Will order oral replacement. (7) Normocytic normochromic anemia Status: Chronic Assessment & Plan: The patient has a history of anemia. Her more recent CBCs have shown normal HCT but her counts have dropped with her current illness. (8) Hypothyroidism Status: Chronic Assessment & Plan: Continue levothyroxine 75mcg daily. (9) Hyperlipidemia Status: Chronic Assessment & Plan: Continue cholestyramine. (10) Essential hypertension Status: Chronic Assessment & Plan: Continue losartan, amlodipine and labetalol. (11) Diarrhea Status: Chronic Assessment & Plan: The patient is on cholestyramine. This has been present since her cholecystectomy in 2017 and is stable. Exam Sepsis Risk: No Definite Risk NATE NINO DO Apr 21, 2019 08:59
[2019-04-21] MEDS ORDERED: AZITHROMYCIN 250 MG TAB PO ONE (09:00)
[2019-04-21 09:36] VITALS: BP 149/71
[2019-04-21] MEDS: ASPIRIN 81 MG ENTERIC COATED PO SCH (09:46)
[2019-04-21] MEDS: ESTROGENS CONJ 0.3 MG TAB PO SCH (09:46)
[2019-04-21] MEDS: CHOLECALCIFEROL 1000 UNIT TAB PO SCH (09:46)
[2019-04-21] MEDS: PARoxetine HCL 20 MG TAB PO SCH (09:46)
[2019-04-21] MEDS: POTASSIUM CHL 20 MEQ TABCR PO SCH ×2 (09:46→17:43)
[2019-04-21] MEDS: amLODIPine BESYL(*) 5 MG TAB PO SCH (09:47)
[2019-04-21] MEDS: MULTIVITAMINS TAB PO SCH (09:47)
[2019-04-21] MEDS: LOSARTAN POTASSIUM 50 MG TAB PO SCH (09:47)
[2019-04-21] MEDS: CALCIUM CITRATE/ERGOCALCIFEROL PO SCH (09:48)
[2019-04-21] MEDS: LABETALOL HCL 100 MG TAB PO SCH ×2 (09:48→20:34)
[2019-04-21] MEDS: FLUTICASONE PROP 0.05% 16 GM SCH (09:48)
[2019-04-21] MEDS: LOPERAMIDE HCL 2 MG CAP PO PRN ×2 (09:49→11:09)
[2019-04-21] MEDS: ENOXAPARIN 40 MG/0.4ML SYR SC SCH (09:49)
[2019-04-21] MEDS: ACETAMINOPHEN 325 MG TAB PO PRN ×2 (09:49→17:43)
[2019-04-21] MEDS: ONDANSETRON 4 MG/2 ML VIAL IVP PRN (11:09)
[2019-04-21] MEDS ORDERED: IOPAMIDOL 76% 100 ML INFUS BTL 100 ML ONE (11:40)
[2019-04-21 12:30] VITALS: BP 137/67
--- NOTE | 2019-04-21 13:50 | RADIOLOGY IMAGING REPORT ---
FACILITY: [facility] PATIENT NAME: Amrita Callaway : 1955 MR: [id number] V: [id number] EXAM DATE: ORDERING PHYSICIAN: PATRICK MODI TECHNOLOGIST: Location: [facility] [place] Patient: Amrita Callaway : 1955 Visit/Account:[id number] Date of Sevice: 04/21/2019 EXAMINATION: CT Abdomen W/O Contrast CT Abdomen W/ Contrast CT Pelvis W/O Contrast CT Pelvis W/ Contrast 04/21/2019 8:00 AM HISTORY: hepatosplenomegaly, adenopathy TECHNIQUE: Spiral scans were obtained through the abdomen and pelvis before and during injection of nonionic iodinated intravenous contrast. Contrast: 75 mL of IV Isovue 370. One of the following dose optimization techniques was utilized in the performance of this exam: Autom ated exposure control; adjustment of the mA and/or kV according to the patient's size; or use of an i terative reconstruction technique. Specific details can be referenced in the facility's radiology C T exam operational policy. COMPARISON STUDIES: CTA chest 04/22/2019. CT abdomen and pelvis 09/02/2017.. FINDINGS: Liver / biliary: Hepatomegaly with fatty liver density. No focal lesion. Prior cholecystectomy. CBD m easures a millimeter. No visible choledocholithiasis or other obstructing focus. Intrahepatic ducts a re not significantly dilated. Pancreas: negative Spleen: Spleen 14.5 x 8.2 x 14.9 cm. Incidental posteroinferior accessory splenule. Adrenal glands: negative Kidneys / retroperitoneum: negative Pelvic structures: Prior hysterectomy. Bowel / peritoneum / mesenteries: Duodenal diverticulum incidentally present. Jejunal diverticula are also present in the left upper quadrant. No obstruction, focal inflammation, or significant acute brigette wel or peritoneal finding. Vessels: Atherosclerosis. Musculoskeletal / Body wall: Degenerative changes in the spine with levoscoliotic curvature. Previous lumbar laminectomy and L4-S1 fusion with persistent L5-S1 anterolisthesis. Gas in the left ventral a bdominal wall from injections. There is some discontinuity in the fascial line in the midline above t he umbilicus without substantial hernia. Lymph node assessment: Nonspecific 1 cm lymph node in front of the left adrenal. Additional smaller r etroperitoneal lymph nodes below this and along bowel mesentery. No substantial abdominal or pelvic a denopathy. Lower chest: Minimal pleural fluid and adjacent atelectasis in the bases. IMPRESSION: 1. Hepatomegaly with fatty infiltration. No clear cirrhotic features. 2. Nonspecific splenomegaly. No substantial adenopathy in the abdomen or pelvis. Report Dictated By: Aung Sandoval MD at 04/21/2019 1:31 PM Report E-Signed By: Aung Sandoval MD at 04/21/2019 1:43 PM WSN:[id number]
--- NOTE | 2019-04-21 13:52 | RADIOLOGY IMAGING REPORT ---
FACILITY: [facility] PATIENT NAME: Amrita Callaway : 1955 MR: [id number] V: [id number] EXAM DATE: ORDERING PHYSICIAN: PATRICK MODI TECHNOLOGIST: Location: [facility] Patient: Amrita Callaway : 1955 Visit/Account:[id number] Date of Sevice: 04/21/2019 EXAMINATION: CT Head Without Contrast 04/21/2019 8:00 AM HISTORY: headache TECHNIQUE: Contiguous axial images were obtained from the skull base to the vertex without intraven ous contrast. One of the following dose optimization techniques was utilized in the performance of this exam: Autom ated exposure control; adjustment of the mA and/or kV according to the patient's size; or use of an i terative reconstruction technique. Specific details can be referenced in the facility's radiology C T exam operational policy. COMPARISON STUDIES: 12/29/2016 FINDINGS: Ventricles / sulci / fissures: Enlarged but within normal limits for age. Masses / hemorrhage / midline shift: negative White matter: Minimal number of white matter lucencies, non-specific and age appropriate. James-white differentiation: negative Extra-axial spaces: negative Dural venous sinuses / arterial structures: negative Skull base / calvarium: negative Visualized mastoid air cells / paranasal sinuses: negative IMPRESSION: Unremarkable head CT for age. No evidence of acute mass, stroke, or hemorrhage.. Report Dictated By: Aung Sandoval MD at 04/21/2019 1:43 PM Report E-Signed By: Aung Sandoval MD at 04/21/2019 1:46 PM WSN:[id number]
[2019-04-21 15:15] VITALS: BP 144/62
[2019-04-21] MEDS: QUEtiapine FUM 25 MG TAB PO SCH (20:34)
[2019-04-21 20:56] VITALS: BP 159/65
[2019-04-22 03:23] VITALS: BP 159/67
[2019-04-22 05:31] LABS: PLATELET COUNT, AUTOMATED 137 K/uL (150-450)
[2019-04-22] MEDS: LEVOTHYROXINE SOD 0.175 MG TAB PO SCH (06:21)
[2019-04-22] MEDS: ACETAMINOPHEN 325 MG TAB PO PRN ×3 (06:28→23:32)
[2019-04-22 07:46] VITALS: BP 147/61
[2019-04-22] MEDS: POTASSIUM CHL 20 MEQ TABCR PO SCH ×3 (08:00→17:07)
[2019-04-22] MEDS: CALCIUM CITRATE/ERGOCALCIFEROL PO SCH ×2 (09:00→09:33)
[2019-04-22] MEDS: MULTIVITAMINS TAB PO SCH ×2 (09:00→09:33)
[2019-04-22] MEDS: CHOLECALCIFEROL 1000 UNIT TAB PO SCH ×2 (09:00→09:33)
[2019-04-22] MEDS: PARoxetine HCL 20 MG TAB PO SCH (09:32)
[2019-04-22] MEDS: ENOXAPARIN 40 MG/0.4ML SYR SC SCH (09:32)
[2019-04-22] MEDS: LOSARTAN POTASSIUM 50 MG TAB PO SCH (09:32)
[2019-04-22] MEDS: LABETALOL HCL 100 MG TAB PO SCH ×2 (09:32→21:12)
[2019-04-22] MEDS: FLUTICASONE PROP 0.05% 16 GM SCH (09:33)
[2019-04-22] MEDS: ASPIRIN 81 MG ENTERIC COATED PO SCH (09:33)
[2019-04-22] MEDS: ESTROGENS CONJ 0.3 MG TAB PO SCH (09:33)
[2019-04-22] MEDS: amLODIPine BESYL(*) 5 MG TAB PO SCH (09:33)
[2019-04-22] MEDS: ONDANSETRON 4 MG/2 ML VIAL IVP PRN ×2 (09:44→17:11)
--- NOTE | 2019-04-22 11:08 | Hospitalist Progress Note ---
Subjective Progress Notes Subjective The patient is having some nausea this am. She states she felt pretty well yesterday. She continues to have soaking night sweats. Physical Exam Vital Signs Date Time Temp Pulse Resp B/P (MAP) Pulse Ox O2 Delivery O2 Flow Rate FiO2 04/22/19 07:59 94 Nasal Cannula 3.0 04/22/19 07:46 98.9 76 16 147/61 (89) Intake and Output 04/22/19 07:03 Intake Total 2350 ml Balance 2350 ml Intake Oral 1400 ml IV Total 950 ml # Voids 3 # Bowel Movements 3 # Emes[place] 1 General Appearance: Alert, Awake, No Acute Distress Neuro: No Gross deficits Cardiovascular: Regular Rate and Rhythm Respiratory: Clear to Auscultation GI: Other (Liver edge palpable and tender at the costal margin. Spleen difficult to assess due to body habitus.) Lymph: Cervical Nodes Benign, Other (R supraclavicular area negative. L supraclavicular area without obvious palpable LN today.) Extremities: Warm, Perfused Integumentary: Skin Intact without Lesion / Mass Psych: Appropriate Mood & Affect Result Diagram: 04/22/19 0518 04/21/19 0632 Assessment and Plan Problems: (1) Fever Status: Acute Assessment & Plan: She did present with fever and night sweats over the last 2 weeks. Her fever has improved but she continues to have nightly soaking night sweats. Her CT scan showed findings consistent with adenopathy. She also has hepatosplenomegaly. Her CBC continues to show lymphocytosis. She is on isolation pending testing for tuberculosis. West Nile studies are pending. (2) Hypoxia Status: Acute Assessment & Plan: Her saturations in the ER were low 70s. She is not on O2 at home prior to this acute illness. (3) Lymphadenopathy Status: Acute Assessment & Plan: Further work up as above. TB test is negative. Monotest and HIV are negative. West Nile studies are pending. Blood cultures are negative to date. The patient continues to have soaking night sweats and an abnormal CBC. [facility] with [facility]. (4) Hepatosplenomegaly Status: Acute Assessment & Plan: CT of the abdomen and pelvis from 2017 did not show hepatosplenomegaly so this is a new finding. (5) Thrombocytopenia Status: Acute Assessment & Plan: Etiology unclear. Work up as above. (6) Hypokalemia Status: Acute Assessment & Plan: Mild. Will order oral replacement. She had been on 20meq of potassium daily at home. Will double that here. (7) Normocytic normochromic anemia Status: Chronic Assessment & Plan: The patient has a history of anemia. Her more recent CBCs have shown normal HCT but her counts have dropped with her current illness. (8) Hypothyroidism Status: Chronic Assessment & Plan: Continue levothyroxine 75mcg daily. TSH has been ordered. (9) Hyperlipidemia Status: Chronic Assessment & Plan: Continue cholestyramine. (10) Essential hypertension Status: Chronic Assessment & Plan: Continue losartan, amlodipine and labetalol. (11) Diarrhea Status: Chronic Assessment & Plan: The patient is on cholestyramine. This has been present since her cholecystectomy in 2017 and is stable. Time Spent on Plan of Care: < 30 min Exam Sepsis Risk: No Definite Risk PATRICK MODI MD Apr 22, 2019 11:07
[2019-04-22 11:35] VITALS: BP 151/75
[2019-04-22] MEDS: LOPERAMIDE HCL 2 MG CAP PO PRN ×2 (11:41→17:11)
[2019-04-22 14:16] VITALS: BP 144/62
[2019-04-22] MEDS: NS(*) 0.9% 1000 ML BAG 1,000 ML IV PRN (15:35)
[2019-04-22 19:06] VITALS: BP 164/77
[2019-04-22] MEDS: traMADol 50 MG TAB PO PRN (19:48)
[2019-04-22] MEDS: QUEtiapine FUM 25 MG TAB PO SCH (21:13)
[2019-04-22 23:22] VITALS: BP 143/64
[2019-04-23 03:00] VITALS: BP 157/59
[2019-04-23 06:15] LABS: PLATELET COUNT, AUTOMATED 147 K/uL (150-450)
[2019-04-23] MEDS: LEVOTHYROXINE SOD 0.175 MG TAB PO SCH (06:29)
[2019-04-23 07:01] VITALS: BP 160/77
[2019-04-23] MEDS: POTASSIUM CHL 20 MEQ TABCR PO SCH ×2 (08:00→18:18)
[2019-04-23] MEDS: ONDANSETRON 4 MG/2 ML VIAL IVP PRN (08:26)
[2019-04-23] MEDS: FLUTICASONE PROP 0.05% 16 GM SCH (08:27)
[2019-04-23] MEDS: ASPIRIN 81 MG ENTERIC COATED PO SCH (09:12)
[2019-04-23] MEDS: LABETALOL HCL 100 MG TAB PO SCH (09:12)
[2019-04-23] MEDS: ESTROGENS CONJ 0.3 MG TAB PO SCH (09:12)
[2019-04-23] MEDS: PARoxetine HCL 20 MG TAB PO SCH (09:12)
[2019-04-23] MEDS: ENOXAPARIN 40 MG/0.4ML SYR SC SCH (09:12)
[2019-04-23] MEDS: LOSARTAN POTASSIUM 50 MG TAB PO SCH (09:12)
[2019-04-23] MEDS: amLODIPine BESYL(*) 5 MG TAB PO SCH (09:13)
[2019-04-23] MEDS: CALCIUM CITRATE/ERGOCALCIFEROL PO SCH (09:13)
[2019-04-23] MEDS: CHOLECALCIFEROL 1000 UNIT TAB PO SCH (09:14)
[2019-04-23] MEDS: MULTIVITAMINS TAB PO SCH (09:14)
[2019-04-23 09:17] VITALS: BP 160/72
[2019-04-23 10:57] VITALS: BP 152/69
[2019-04-23] MEDS: LOPERAMIDE HCL 2 MG CAP PO PRN (11:06)
[2019-04-23] MEDS: ACETAMINOPHEN 325 MG TAB PO PRN (14:03)
[2019-04-23 15:15] VITALS: BP 140/57
--- NOTE | 2019-04-23 18:32 | Hospitalist Depart ---
Discharge Summary Reason for Hosp/Final Diag: (1) Fever Status: Acute Hospital Course & Plan: She did present with fever and night sweats over the last 2 weeks. Her fever has improved but she continues to have nightly soaking night sweats. Her CT scan showed findings of hilar/mediastinal adenopathy. She also has hepatosplenomegaly. Her CBC continues to show lymphocytosis. TB testing negative. [place] studies are pending. Given constellation of symptoms high concern for myeloproliferative disorder. Referred to Dr Palumbo for lymph node biopsy and/or bone marrow biopsy. (2) Hypoxia Status: Acute Hospital Course & Plan: Her saturations in the ER were low 70s. She was started on 2L in ER. (3) Lymphadenopathy Status: Acute Hospital Course & Plan: Further work up as above. TB test is negative. Monotest and HIV are negative. [place] studies are pending. Blood cultures are negative to date. The patient continues to have soaking night sweats and an abnormal CBC. Refer for biopsy as above. (4) Hepatosplenomegaly Status: Acute Hospital Course & Plan: CT of the abdomen and pelvis from 2017 did not show hepatosplenomegaly so this is a new finding. (5) Thrombocytopenia Status: Acute Hospital Course & Plan: Etiology unclear. Work up as above. (6) Hypokalemia Status: Acute Hospital Course & Plan: She had been on 20meq of potassium daily at home. (7) Normocytic normochromic anemia Status: Chronic Hospital Course & Plan: The patient has a history of anemia and is now pancytopenic, given symptoms referred for bone marrow biopsy and possible lymph node biopsy. (8) Hypothyroidism Status: Chronic Hospital Course & Plan: Continue levothyroxine 75mcg daily. (9) Hyperlipidemia Status: Chronic Hospital Course & Plan: Continue cholestyramine. (10) Essential hypertension Status: Chronic Hospital Course & Plan: Continue losartan, amlodipine and labetalol. (11) Diarrhea Status: Chronic Hospital Course & Plan: The patient is on cholestyramine. This has been present since her cholecystectomy in 2017 and is stable. Departure Weight (Pounds): 185 Result Diagram: 04/23/1943 04/23/19542 Condition: No Change Discharge: Home Discharge Instructions Home Meds Active Scripts Paroxetine Hcl (PAROXETINE HCL) 20 Mg Tablet, 1 TAB PO QDAY, #90 TAB 1 Refill Prov:GOKUL PRICE MD 03/28/19 Losartan Potassium (LOSARTAN POTASSIUM) 50 Mg Tablet, 1 TAB PO QDAY, #90 TAB 1 Refill Prov:GOUKL PRICE MD 01/17/19 Amlodipine Besylate (AMLODIPINE BESYLATE) 5 Mg Tablet, 1 TAB PO QDAY, #90 TAB 1 Refill Prov:GOKUL PRICE MD 12/29/18 Labetalol Hcl (LABETALOL HCL) 100 Mg Tablet, 1 TAB PO BID, #180 TAB 3 Refills Prov:GOKUL PRICE MD 04/19/18 Fluticasone Prop 50 Mcg Ns (FLONASE 50 MCG NS) 16 Gm [place].susp, 1 SPRAY NS DAILY, #1 BOT 11 Refills 1-2 sprays both nostrils daily Prov:GOKUL PRICE MD 08/22/17 Reported Medications Quetiapine Fumarate (QUETIAPINE FUMARATE) 50 Mg Tablet, 50 MG PO HS 04/20/19 Estrogens Conjugated (PREMARIN) 0.3 Mg Tab, 1 TAB PO DAILY 04/20/19 Cyclobenzaprine Hcl (CYCLOBENZAPRINE HCL) 10 Mg Tablet, 1 TAB PO TID PRN for SPASMS 04/20/19 Levothyroxine Sodium (SYNTHROID) 175 Mcg Tablet, 1 TAB PO DAILY 04/20/19 Tramadol Hcl (TRAMADOL HCL) 50 Mg Tablet, 2 TAB PO BID, TAB 01/02/19 Potassium Chloride (KLOR-CON M20) 20 Meq Tab.er.prt, 20 MEQ PO QDAY 01/05/18 Multivits,Th W-Fe,Other Min (THERA-M) 1 Each Tablet, 1 EACH PO DAILY 01/11/17 Calcium Citrate/Vitamin D3 (CALCITRATE + VIT D CAPLET) 1 Each Tablet, 1 EACH PO DAILY 01/11/17 Aspirin (ASPIR 81) 81 Mg Tablet.dr, 81 MG PO QDAY, TAB 01/02/17 Cholecalciferol (Vitamin D3) (VITAMIN D3) 1,000 Unit Tablet, 5000 UNIT PO QDAY, TAB 01/02/17 Estrogens, Conjugated (PREMARIN) 0.45 Mg Tablet, 1 TAB PO DAILY, #30 1 Refill 12/27/16 Discontinued Reported Medications Levothyroxine Sodium (LEVOTHYROXINE SODIUM) 100 Mcg Tablet, 100 MCG PO QDAY, TAB 04/20/19 Levothyroxine Sodium (LEVOTHYROXINE SODIUM) 75 Mcg Tablet, 75 MCG PO QDAY, TAB 04/20/19 Carisoprodol (SOMA) 350 Mg Tablet, 350 MG PO QID, TAB 04/17/19 Levothyroxine Sodium (SYNTHROID) 200 Mcg Tablet, 200 MCG PO QDAY 04/17/19 Nabumetone (NABUMETONE) Unknown Strength Tablet, PO BID, #20 TAB 12/04/18 Discontinued Scripts Azithromycin 250 Mg Tab (AZITHROMYCIN 250 MG TAB) 250 Mg Tablet, 1 TAB PO QDAY, #4 TAB 1 tab a day until gone. Prov:[employer] 04/17/19 Levothyroxine Sodium (LEVOTHYROXINE SODIUM) 175 Mcg Tablet, 175 MCG PO QDAY, #90 TAB 4 Refills Prov:GOKUL PRICE MD 12/19/18 Ciprofloxacin Hcl 500 Mg Tab (CIPRO 500 MG TAB) 500 Mg Tablet, 500 MG PO BID, #14 TAB Prov:GOKUL PRICE MD 12/04/18 Diet: Regular Activity: As Tolerated Special Instructions: You have an appointment with Dr Palumbo 04.24.2019 @ 0223 to discuss biopsy. Copies to: GOKUL PRICE MD; NATE PALUMBO MD ; Venous Thromboembolism Antithrombotics Is Pt On Any Antithrombotics?: Yes ATUL PRABHAKAR DO Apr 23, 2019 18:30
[2019-04-24] MEDS ORDERED: PRED20TA6 PO (12:19)
[2019-04-24] MEDS ORDERED: CHOL4PAC15 PO (12:37)
[2019-04-24] MEDS ORDERED: ONDA4TAB9 PO (12:37)
== END 2019-04-23 18:50 | disposition home or self-care (01) | DRG 841 ==
LOC: ER 15:30 → MED 18:18
PROVIDERS: ADMIT Internal Medicine; ATTEND Internal Medicine
DX: C94.6 Myelodysplastic disease, not elsewhere classified (principal); D61.818 Other pancytopenia; R09.02 Hypoxemia; R59.1 Generalized enlarged lymph nodes; D69.6 Thrombocytopenia, unspecified; R16.2 Hepatomegaly with splenomegaly, not elsewhere classified; R61 Generalized hyperhidrosis; E87.6 Hypokalemia; E03.9 Hypothyroidism, unspecified; E78.5 Hyperlipidemia, unspecified; I10 Essential (primary) hypertension; R53.1 Weakness; K21.9 Gastro-esophageal reflux disease without esophagitis; F41.8 Other specified anxiety disorders; F31.9 Bipolar disorder, unspecified; G89.29 Other chronic pain; Z90.49 Acquired absence of other specified parts of digestive tract; Z88.0 Allergy status to penicillin; Z88.8 Allergy status to other drugs, medicaments and biological substances; Z98.1 Arthrodesis status
CPT/HCPCS: 36415; 70450; 71275; 74178; 81001; 82040; 82247; 82310; 82374; 82435; 82565; 82947; 83605; 84075; 84132; 84155; 84295; 84443; 84450; 84460; 84484; 84520; 85025; 85379; 85651; 86140; 86308; 86580; 86703; 86788; 86789; 87040; 87116; 93005; 94640; 94667; 96361; 96374; 99284; J1650; J2405; J7030; J7050; Q9967

== ENCOUNTER → 2019-04-25 | Outpatient (CLI) | payer MEDICARE, OTHER ==
[2017-08-30 12:31] VITALS: BMI 27.2
[~2019-04-25] MED LIST changes: +CYCL10TA29 PO; +EST3 PO; +LEVO175T38 PO; +LEVO75TA73 PO; +ONDA4TAB9 PO; +PRED20TA6 PO; +QUET50TA PO
--- NOTE | 2019-04-25 18:07 | RADIOLOGY IMAGING REPORT ---
FACILITY: [facility] PATIENT NAME: Amrita Callaway : 1955 MR: [id number] V: [id number] EXAM DATE: ORDERING PHYSICIAN: GOKUL PRICE TECHNOLOGIST: Location: [facility] - [place] Patient: Amrita Callaway : 1955 Visit/Account:[id number] Date of Sevice: 04/25/2019 CT CHEST HIGH RESOLUTION W/O CON HISTORY: Hypoxia and lymphadenopathy TECHNIQUE: CT chest without intravenous contrast. One of the following dose optimization techniques was utilized in the performance of this exam: Autom ated exposure control; adjustment of the mA and/or kV according to the patient's size; or use of an i terative reconstruction technique. Specific details can be referenced in the facility's radiology C T exam operational policy. CONTRAST: None. COMPARISON: CT chest dated 03/21/2019. FINDINGS: Heart/vessels: Minimal calcification within the RCA. Mild atherosclerosis within the thoracic aorta . Mediastinum: Negative. Lymph nodes: Numerous subcentimeter mediastinal and hilar lymph nodes which appear overall stable to slightly decreased since prior exam. No enlarging lymph nodes identified. Lungs/pleura: Trace bilateral pleural effusions, new since prior exam. Mild linear scarring within the lung bases. No interstitial thickening, honeycombing, or groundglass. Mild/moderate scattered a ir trapping. Visualized upper abdomen: Mild/moderate hepatic steatosis. Partial visualization of an enlarged spl een measuring at least 14.8 cm in diameter. The liver may also be enlarged. Otherwise negative. Bones/soft tissues: Negative. IMPRESSION: 1. No evidence for interstitial lung disease. 2. Mild/moderate nonspecific air trapping. 3. Numerous subcentimeter mediastinal and hilar lymph nodes which appear stable to slightly decrease d since prior exam. 4. Additional incidental/chronic findings, as above. Report Dictated By: Noe Sharma MD at 04/25/2019 5:55 PM Report E-Signed By: Noe Sharma MD at 04/25/2019 5:59 PM WSN:[id number]
== END ==
LOC: LAB 10:43
PROVIDERS: ATTEND Emergency Medicine
DX: R91.8 Other nonspecific abnormal finding of lung field (principal)
CPT/HCPCS: 36415; 71250; 82164; 82306; 82607; 82652; 82728; 82746; 83540; 83550; 86140

== ENCOUNTER → 2019-04-27 | Outpatient (CLI) | payer MEDICARE, OTHER ==
[2017-08-30 12:31] VITALS: BMI 27.2
== END ==
LOC: LAB 14:34
PROVIDERS: ATTEND Emergency Medicine
DX: R06.00 Dyspnea, unspecified (principal); D64.9 Anemia, unspecified; R74.8 Abnormal levels of other serum enzymes
CPT/HCPCS: 36415; 82784; 83516; 83880; 83883; 84160; 84165; 86334

== ENCOUNTER → 2019-05-01 | Outpatient (CLI) | payer MEDICARE, OTHER ==
[2017-08-30 12:31] VITALS: BMI 27.2
== END ==
LOC: LAB 10:20
PROVIDERS: ATTEND Emergency Medicine
DX: D64.9 Anemia, unspecified (principal)
CPT/HCPCS: 83516

== ENCOUNTER → 2019-05-01 | Outpatient (CLI) | payer MEDICARE, OTHER ==
[2017-08-30 12:31] VITALS: BMI 27.2
== END ==
LOC: LAB 10:21
PROVIDERS: ATTEND Surgery
DX: Z02.9 Encounter for administrative examinations, unspecified (principal)

== ENCOUNTER 2019-05-18 14:54 | Inpatient (IN) | payer MEDICARE, OTHER ==
[2017-08-30 12:31] VITALS: Ht 177.8 cm; Wt 85.9 kg
[~2019-05-18] VITALS: Ht 177.8 cm; Wt 85.9 kg
[~2019-05-18 14:54] MED LIST changes: +PRE5 PO
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
[2019-05-18] MEDS ORDERED: NS(*) 0.9% 1000 ML BAG 1,000 ML IV ONE (15:55)
--- NOTE | 2019-05-18 17:11 | RADIOLOGY IMAGING REPORT ---
FACILITY: [facility] - [place] PATIENT NAME: Amrita Callaway : 1955 MR: [id number] V: [id number] EXAM DATE: ORDERING PHYSICIAN: TONIO BAZAN TECHNOLOGIST: Location: [facility] - [place] Patient: Amrita Callaway : 1955 Visit/Account:[id number] Date of Sevice: 05/18/2019 EXAMINATION: CT head without IV contrast HISTORY: Irregular speech. TECHNIQUE: Axial CT images of the head were obtained from the vertex to the skull base without IV c ontrast, with coronal and sagittal 2D reconstructed images. One of the following dose optimization techniques was utilized in the performance of this exam: Autom ated exposure control; adjustment of the mA and/or kV according to the patient's size; or use of an i terative reconstruction technique. Specific details can be referenced in the facility's radiology C T exam operational policy. COMPARISON: 04/21/2019. FINDINGS: Mild age-appropriate parenchymal volume loss. Mild intracranial vascular calcifications. No CT evidence of intracranial hemorrhage, mass lesion, or acute infarct. No midline shift or extra-a xial fluid collections. James-white differentiation is maintained. The calvarium is intact. The partially visualized paranasal sinuses and mastoid air cells are unopaci fied. IMPRESSION: No CT evidence of acute intracranial pathology. Stable exam. Report Dictated By: Albino Vargas MD at 05/18/2019 4:59 PM Report E-Signed By: Albino Vargas MD at 05/18/2019 5:02 PM [id number]
[2019-05-18] MEDS ORDERED: NAPROXEN 500 MG TAB PO ONE (20:40)
[2019-05-18] MEDS ORDERED: LORazepam 2 MG/ML VIAL IVP ONE (22:40)
[2019-05-18] MEDS ORDERED: OLANZapine 10 MG VIAL IM ONLY ONE (22:40)
[2019-05-18] MEDS ORDERED: WATER STERILE 10 ML VIAL IM ONLY ONE (22:40)
[2019-05-18] MEDS ORDERED: diphenhydrAMINE 50 MG/ML VIAL IVP ONE (22:40)
[2019-05-18 23:15] VITALS: BP 161/71
--- NOTE | 2019-05-19 00:01 | History & Physical ---
History of Present Illness Chief Complaint Inability to sleep for several days History of Present Illness The patient is a 63 year old female who was recently discharged from [facility] after an admission for hypoxia/hepatosplenomegaly/fever. CT of the chest was abnormal and she was treated with high dose steroids. At the time of her last discharge from [facility], she was instructed to see Dr. Palumbo for possible LN biopsy or bone marrow biopsy. She was feeling much better and Dr. Palumbo elected to watch the patient closely. He did tell her to wean her steroids. When she couldn't sleep, she called Dr. Palumbo's office and was instructed to go ahead and stop the steroids as she had weaned down to 5mg daily. The patient does have a previous history of psychosis and has been admitted on two occasions to [facility]. Her last admission to [facility] was 2016. She takes Seroquel 100mg at . The patient presented to [facility] ER last evening due to inability to sleep for 7 days. In the ER last night she was treated with Zyprexa, benadryl and Ativan. She slept well for 7 hours and then was discharged to home. She presented back to [facility] ER earlier this afternoon complaining of stuttering speech. She states she has been cleaning and gardening nonstop. She even had a garage sale. She is concerned that she is talking like Josey Martinez. History Problems: (1) Essential hypertension Status: Chronic (2) Hyperlipidemia Status: Chronic (3) Hypothyroidism Status: Chronic (4) Chronic back pain Status: Chronic (5) Hepatosplenomegaly Status: Chronic (6) Lymphadenopathy Status: Chronic (7) Thrombocytopenia Status: Chronic (8) History of hysterectomy Status: Acute (9) S/P lumbar fusion Status: Acute (10) Hx of cholecystectomy Status: Chronic (11) Bipolar disorder Status: Chronic Home Meds Active Scripts Prednisone 5 Mg Tab (PREDNISONE 5 MG TAB) 5 Mg Tablet, 5 MG PO BID, #15 TAB 0 Refills Patient to follow verbal instructions given on 05/08/19 via phone for steroid taper. Prov:NATE PALUMBO MD 05/08/19 Ondansetron 4 Mg Odt (ONDANSETRON 4 MG ODT) 4 Mg Tab.rapdis, 1 TAB.URVASHI PO TID PRN for NAUSEA/VOMITING, #20 TAB 3 Refills Prov:NATE PALUMBO MD 04/24/19 Cholestyramine (With Sugar) (CHOLESTYRAMINE PACKET) 4 Gm Powd.pack, 1 PACK PO TIDAC, #90 PACKET 6 Refills Prov:NATE PALUMBO MD 04/24/19 Prednisone (PREDNISONE) 20 Mg Tablet, 1 TAB PO BID, #60 TAB 3 Refills Prov:NATE PALUMBO MD 04/24/19 Paroxetine Hcl (PAROXETINE HCL) 20 Mg Tablet, 1 TAB PO QDAY, #90 TAB 1 Refill Prov:GOKUL PRICE MD 03/28/19 Losartan Potassium (LOSARTAN POTASSIUM) 50 Mg Tablet, 1 TAB PO QDAY, #90 TAB 1 Refill Prov:GOKUL PRICE MD 01/17/19 Amlodipine Besylate (AMLODIPINE BESYLATE) 5 Mg Tablet, 1 TAB PO QDAY, #90 TAB 1 Refill Prov:GOKUL PRICE MD 12/29/18 Labetalol Hcl (LABETALOL HCL) 100 Mg Tablet, 1 TAB PO BID, #180 TAB 3 Refills Prov:GOKUL PRICE MD 04/19/18 Fluticasone Prop 50 Mcg Ns (FLONASE 50 MCG NS) 16 Gm [place].susp, 1 SPRAY NS DAILY, #1 BOT 11 Refills 1-2 sprays both nostrils daily Prov:GOKUL PRICE MD 08/22/17 Reported Medications Quetiapine Fumarate (QUETIAPINE FUMARATE) 50 Mg Tablet, 50 MG PO HS 04/20/19 Estrogens Conjugated (PREMARIN) 0.3 Mg Tab, 1 TAB PO DAILY 04/20/19 Cyclobenzaprine Hcl (CYCLOBENZAPRINE HCL) 10 Mg Tablet, 1 TAB PO TID PRN for SPASMS 04/20/19 Levothyroxine Sodium (SYNTHROID) 175 Mcg Tablet, 1 TAB PO DAILY 04/20/19 Tramadol Hcl (TRAMADOL HCL) 50 Mg Tablet, 2 TAB PO BID, TAB 01/02/19 Potassium Chloride (KLOR-CON M20) 20 Meq Tab.er.prt, 20 MEQ PO QDAY 01/05/18 Multivits,Th W-Fe,Other Min (THERA-M) 1 Each Tablet, 1 EACH PO DAILY 01/11/17 Calcium Citrate/Vitamin D3 (CALCITRATE + VIT D CAPLET) 1 Each Tablet, 1 EACH PO DAILY 01/11/17 Aspirin (ASPIR 81) 81 Mg Tablet.dr, 81 MG PO QDAY, TAB 01/02/17 Cholecalciferol (Vitamin D3) (VITAMIN D3) 1,000 Unit Tablet, 5000 UNIT PO QDAY, TAB 01/02/17 Estrogens, Conjugated (PREMARIN) 0.45 Mg Tablet, 1 TAB PO DAILY, #30 1 Refill 12/27/16 Allergies: Coded Allergies: amoxicillin (Verified Allergy, Mild, VOMITING, 04/17/19) clavulanic acid (Verified Allergy, Mild, VOMITING, 04/17/19) Patient History: FH: Alzheimers disease FATHER, , Age:87 MOTHER, , Age:85 Grandmother, FH: CAD (coronary artery disease) BROTHER OR SISTER BROTHER OR SISTER Grandfather, FH: HTN (hypertension) MOTHER, , Age:85 FH: depression MOTHER, , Age:85 FHx: sarcoidosis BROTHER OR SISTER BROTHER OR SISTER Other Social/Family Hx The patient lives in [place] with her . Hx Smoking: No Smoking Status: Never Smoker Exposure to Second Hand Smoke?: Yes (Parent - 40 years ago) Caffeine Intake: Coffee Caffeine/Cups Per Day: 1 Cup/WEEK Hx Alcohol Use: No Hx Substance Use Disorder: No Social Drug Use: Never History of IV Drug Use: No Review of Systems All Systems Reviewed/Normal: Yes, Except as Noted Psychiatric: Other (Per the patient's , she has been talking nonstop, and cleaning and gardening. She had not slept for 7 days until last evening when she was seen in the ER.) Exam Vital Signs Vital Signs Date Time Temp Pulse Resp B/P (MAP) Pulse Ox O2 Delivery O2 Flow Rate FiO2 05/18/19 15:27 98.4 92 20 166/79 93 Room Air General Appearance: Alert, Awake, Other (Pressured speech. Does not finish her sentences.) Neuro: Other (The patient became agitated and began stuttering. The stuttering stopped once she calmed down.) Eyes: PERRLA Cardiovascular: Regular Rate and Rhythm Respiratory: Clear to Auscultation GI: Abd Soft and Non-Tender Extremities: Warm, Perfused Integumentary: Other (Multiple abrasions over arms and lower legs.) Psych: Other (Agitated, pressured speech.) Medical Decision Making Data Points Item Value Date Time Salicylates Level < 10 mg/L 05/18/19 1610 Salicylate Last Dose Date unk 05/18/19 1610 Acetaminophen Level < 10 ug/ml 05/18/19 1610 Urine Opiates Screen Negative 05/18/19 1846 Urine Barbiturates Screen Negative 05/18/19 184 Ur Tricyclic Antidepressants Screen Positive 05/18/19 184 Urine Phencyclidine Screen Negative 05/18/19 184 Urine Amphetamines Screen Negative 05/18/19 184 Urine Benzodiazepines Screen Positive 05/18/19 184 Urine Cocaine Screen Negative 05/18/19 184 Urine Cannabinoids Screen Negative 05/18/191845 EKG / Imaging EKG Interpretation EKG was WNL. No evidence of QT prolongation. Imaging FACILITY: [facility] PATIENT NAME: Amrita Callaway : 1955 MR: [id number] V: [id number] EXAM DATE: ORDERING PHYSICIAN: TONIO BAZAN TECHNOLOGIST: Location: [facility] Patient: Amrita Callaway : 1955 Visit/Account:[id number] Date of Sevice: 05/18/2019 EXAMINATION: CT head without IV contrast HISTORY: Irregular speech. TECHNIQUE: Axial CT images of the head were obtained from the vertex to the skull base without IV contrast, with coronal and sagittal 2D reconstructed images. One of the following dose optimization techniques was utilized in the performance of this exam: Automated exposure control; adjustment of the mA and/o r kV according to the patient's size; or use of an iterative reconstruction technique. Specific details can be referenced in the facility's radiology CT exam operational policy. COMPARISON: 04/21/2019. FINDINGS: Mild age-appropriate parenchymal volume loss. Mild intracranial vascular calcifications. No CT evidence of intracranial hemorrhage, mass lesion, or acute infarct. No midline shift or extra-axial fluid collections. James-white differentiation is maintained. The calvarium is intact. The partially visualized paranasal sinuses and mastoid air cells are unopacified. IMPRESSION: No CT evidence of acute intracranial pathology. Stable exam. Report Dictated By: Albino Vargas MD at 05/18/2019 4:59 PM Report E-Signed By: Albino Vargas MD at 05/18/2019 5:02 PM [id number] Pre-Admit Course Medical Record Review: Yes Assessment and Plan Problems: (1) Bryan Status: Acute Assessment & Plan: The patient has a history of Bipolar 1 disorder per her [facility] stay in 2017. She presented then with bryan. The patient now presents with bryan which is likely due to recent steroid use. She refused admission to [facility]. Will admit and repeat the cocktail she received in ER last evening which did result in 7 hours of sleep. Will have [facility] evaluate her in the morning. (2) Essential hypertension Status: Chronic Assessment & Plan: Will continue her usual home meds including amlodipine, labetalol and losartan. (3) Hypothyroidism Status: Chronic Assessment & Plan: TSH is high. It is unclear whether or not she has been taking her medications properly the past week. Will restart her usual dose of levothyroxine. (4) Hepatosplenomegaly Status: Chronic Assessment & Plan: The patient was recently noted to have hepatosplenomegaly. Work up is in progress. (5) Abnormal CT scan Assessment & Plan: The patient had an abnormal CT scan of the chest during her last admission. She is scheduled to see a community health nurse supervisor in the near future for further evaluation. (6) Hyperlipidemia Status: Chronic Assessment & Plan: Continue cholestyramine. Time Spent on Plan of Care: < 30 min Venous Thromboembolism Antithrombotics Is Pt On Any Antithrombotics?: Yes Exam Sepsis Risk: No Definite Risk PATRICK MODI MD May 19, 2019 00:01
== END 2019-05-19 00:01 | disposition still patient (30) | DRG 951 ==
LOC: ER 15:16 → MED 23:08
PROVIDERS: ADMIT Internal Medicine; ATTEND Internal Medicine
DX: Z02.9 Encounter for administrative examinations, unspecified (principal)
CPT/HCPCS: 70450; 80305; 80329; 81001; 84443; 93005; 96361; 96372; 96374; 96375; 99285; A4216; J1200; J2060; J3490; J7030